=== PATIENT | male | born 1945 | race Caucasian/White ===

== ENCOUNTER 2021-01-25 16:17 | Inpatient (IN) | payer OTHER ==
[~2021-01-25] VITALS: Ht 167.6 cm; Wt 101.4 kg
[~2021-01-25 16:17] MED LIST: ALLO100 PO; ASPI81CH PO; ATOR40TA PO; Advair Hfa 230-12 GM INH; Aspir-Trin325 MG PO; BP MEDS; DULO60 PO; GABA300 PO; LOSA50 PO; METF500C PO
[2021-01-25 17:10] LABS: BASOPHILS ABSOLUTE AUTO 0.05 K/mm3 (0.00-0.23); BASOPHILS PERCENT AUTO 1 % (0-2); EOSINOPHILS ABSOLUTE AUTO 0.03 K/mm3 (0.00-0.68); EOSINOPHILS PERCENT AUTO 0 % (0-6); Hematocrit 36.4 % (37.0-53.0); Hemoglobin 12.5 g/dL (13.5-17.5); IMMATURE GRAN ABSOLUTE AUTO 0.11 K/mm3 (0.00-0.10); IMMATURE GRAN PERCENT AUTO 1 % (0-1); LYMPHOCYTES ABSOLUTE AUTO 0.87 K/mm3 (0.84-5.20); LYMPHOCYTES PERCENT AUTO 8 % (21-46); MONOCYTES ABSOLUTE AUTO 0.36 K/mm3 (0.16-1.47); MONOCYTES PERCENT AUTO 3 % (4-13); Mean Corpuscular HGB 28.8 pg (26.0-34.0); Mean Corpuscular HGB Conc 34.3 g/dL (31.5-36.5); Mean Corpuscular Volume 84 fL (80-100); Mean Platelet Volume 10.6 fL (9.1-12.4); NEUTROPHILS PERCENT AUTO 87 % (41-73); Platelet Count 191 K/mm3 (150-400); RDW Coefficient Variation 13.3 % (11.7-14.2); RDW Standard Deviation 40.9 fL (35.1-46.3); Red Blood Cell Count 4.34 M/mm3 (4.30-5.90); White Blood Cell Count 11.02 K/mm3 (4.00-11.30)
[2021-01-25 17:36] LABS: Albumin, Blood 3.7 g/dL (3.4-5.0); Albumin/Globulin Ratio 0.9 (0.8-1.8); Bilirubin, Total 1.3 mg/dL (0.1-1.0); Bun/Creatinine Ratio 23.4 (12.0-20.0); Calcium, Blood 9.3 mg/dL (8.5-10.1); Creatinine, Blood 1.37 mg/dL (0.60-1.20); Globulin, Blood 4.1 g/dL (2.2-4.0); Potassium, Blood 4.8 mmol/L (3.5-5.5); Total Protein, Blood 7.8 g/dL (6.4-8.2)
[2021-01-25 18:14] LABS: SARS-Cov-2 (COVID-19) PCR, MMC NEGATIVE (NEGATIVE)
[2021-01-25 18:54] LABS: CPK Creatine Kinase 196 U/L (39-308); Creatine Kinase MB 3.2 ng/mL (0.0-3.6); Creatine Kinase MB Index 1.6 (0.0-4.0); Ethanol (Alcohol), Blood, Med <3 mg/dL; Magnesium, Blood 1.6 mg/dL (1.6-2.4); Salicylate <1.7 mg/dL (2.8-20.0); Troponin I <0.015 ng/mL (0.000-0.040)
[2021-01-25 20:09] LABS: Source, Urine Clean Catch
[2021-01-25 20:40] LABS: Bilirubin, Urine Neg (Neg); Blood, Urine Neg (Neg); Glucose Qualitative, Urine 4+ (Neg); Ketones, Urine 2+ (Neg); Leukocyte Esterase, Urine Neg (Neg); Nitrite, Urine Neg (Neg); Protein, Urine 1+ (Neg); Urobilinogen, Urine NORM (Normal); pH, Urine 6.5 (5.0-8.0)
[2021-01-25 20:54] LABS: Appearance, Urine Clear (Clear); Color, Urine Yellow (P-Yellow)
[2021-01-25 20:59] LABS: U Amphetamine Screen Not Detected; U Barbituate Screen Not Detected; U Benzodiazapine Screen Not Detected; U Buprenorphine Screen Not Detected; U Cannabinoids Screen Not Detected; U Cocaine Screen Not Detected; U Methadone Screen Not Detected; U Methamphetamine Screen Not Detected; U Opiates Screen Not Detected; U Oxycodone Screen Not Detected; U Phencyclidine Screen Not Detected; U Propoxyphene Screen Not Detected
[2021-01-25] MEDS ORDERED: Enulose10 GM/15 M PO (21:40)
[2021-01-26] MEDS ORDERED: ALLO100 PO (14:47)
[2021-01-26] MEDS ORDERED: AMLO10 PO (14:47)
[2021-01-26] MEDS ORDERED: Cardura Xl8 MG PO (14:48)
[2021-01-26] MEDS ORDERED: ATOR10 PO (14:48)
[2021-01-26] MEDS ORDERED: CHLO25B PO (14:48)
[2021-01-26] MEDS ORDERED: GABA800 PO (14:49)
[2021-01-26] MEDS ORDERED: IBUP600 PO (14:49)
[2021-01-26] MEDS ORDERED: DULO60 PO (14:49)
[2021-01-26] MEDS ORDERED: GLIP5 PO (14:49)
[2021-01-26] MEDS ORDERED: LACT10SY PO (14:50)
[2021-01-26] MEDS ORDERED: GLUCOPHAGE1000 M1 PO (14:51)
[2021-01-26] MEDS ORDERED: LIDO700A20 TOP (14:51)
[2021-01-26] MEDS ORDERED: LOSARTAN POTAS100 M1 PO (14:51)
--- NOTE | 2021-01-26 23:45 | NUR ---
ADMISSION NOTE: RECEIVED PATIENT IN ER VIA WEELCHAIR AOOX1. DISORIENTD TO TIME AN PLACE. PT DENIES ANY DISCOMFORT. FORGETFUL, POOR HISTORIAN. NO IV ACCESS. RESP UNLABORED. ORIENTED PT TO CALL LIGHT, ROOM, AND SURROUNDINGS. MEDS GIVEN. PT IS COMPLIANT AND COOPERATIVE BUT NEEDS REINFORCEMENT WITH TASKS. WILL CONTINUE TO MONITOR.
--- NOTE | 2021-01-27 03:13 | NUR ---
PT RESTING IN BED WITHOUT DISTRESS. HE DENIES ANY DISCOMFORT. VSS. NEEDS REDIRECTIONS AT TIMES BUT COMPLIANT AND COOPERATIVE. SAFETY AND COMFORT MEASURES MAINTAINED. CONTINUE WITH PLAN OF CARE.
--- NOTE | 2021-01-27 17:29 | NUR ---
SHIFT SUMMARY: NO ACUTE EVENTS. CIWA 5. ALERT TO SELF ONLY. MADE AWARE THAT HIS IS AT [facility]; MADE PHONE CALL WITH HIM SO HE COULD GET UPDATE ON HER CONDITION. CBG > 200 ALL SHIFT. DENIES PAIN, BUT DID C/O R HIP PAIN TO PHYSICAL THERAPIST THIS MORNING DURING HIS EVAL. LUNGS CLEAR, ON RA. USING BR INDEPENDENTLY, GAIT STEADY. NO ATTEMPTS AT ELOPEMENT, HAS BEEN CALM AND COOPERATIVE THUS FAR, BUT WANTS TO GO HOME OR TO SEE HIS CHARLY.
--- NOTE | 2021-01-28 04:47 | NUR ---
PT IS ALERT AND ORIENTED TO SELF. DENIES ANY DISCOMFORT. NO S/S OF WITHDRAWAL. CIWA SCALE CONSISTENTLY 1. PT HAS BEEN CALM AND COOPERATIVE. PLEASANT ON APPROACH. MEDS GIVEN. SAFETY AND COMFORT MEASURES MAINTAINED. CALL LIGHT WITH REACH. NO CHANGE IN BEHAVIOR.
[2021-01-28 05:10] LABS: BASOPHILS ABSOLUTE AUTO 0.07 K/mm3 (0.00-0.23); BASOPHILS PERCENT AUTO 1 % (0-2); EOSINOPHILS ABSOLUTE AUTO 0.14 K/mm3 (0.00-0.68); EOSINOPHILS PERCENT AUTO 1 % (0-6); Hematocrit 38.4 % (37.0-53.0); IMMATURE GRAN ABSOLUTE AUTO 0.12 K/mm3 (0.00-0.10); IMMATURE GRAN PERCENT AUTO 1 % (0-1); LYMPHOCYTES ABSOLUTE AUTO 2.27 K/mm3 (0.84-5.20); LYMPHOCYTES PERCENT AUTO 20 % (21-46); MONOCYTES ABSOLUTE AUTO 0.56 K/mm3 (0.16-1.47); MONOCYTES PERCENT AUTO 5 % (4-13); Mean Corpuscular HGB 28.8 pg (26.0-34.0); Mean Corpuscular HGB Conc 33.9 g/dL (31.5-36.5); Mean Corpuscular Volume 85 fL (80-100); Mean Platelet Volume 9.9 fL (9.1-12.4); NEUTROPHILS ABSOLUTE AUTO 8.45 K/mm3 (1.96-9.15); NEUTROPHILS PERCENT AUTO 73 % (41-73); Platelet Count 188 K/mm3 (150-400); RDW Coefficient Variation 13.2 % (11.7-14.2); RDW Standard Deviation 41.1 fL (35.1-46.3); Red Blood Cell Count 4.51 M/mm3 (4.30-5.90); White Blood Cell Count 11.61 K/mm3 (4.00-11.30)
[2021-01-28 05:33] LABS: Albumin, Blood 3.3 g/dL (3.4-5.0); Albumin/Globulin Ratio 0.8 (0.8-1.8); Bilirubin, Total 1.5 mg/dL (0.1-1.0); Bun/Creatinine Ratio 20.4 (12.0-20.0); Calcium, Blood 9.6 mg/dL (8.5-10.1); Creatinine, Blood 1.47 mg/dL (0.60-1.20); Potassium, Blood 3.6 mmol/L (3.5-5.5); Total Protein, Blood 7.3 g/dL (6.4-8.2)
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
--- NOTE | 2021-01-28 19:00 | NUR ---
ASSUMED CARE RECEIVED REPORT FROM TRELL SWANN. PT RESTING, IN NAD. NO ACUTE NEEDS ASSESSED. CALL LIGHT, POSSESSIONS IN REACH, BED IN LOW AND LOCKED POSITION.
--- NOTE | 2021-01-28 21:55 | NUR ---
THIS RN IN PT ROOM ASSESSING PT. PT STATED, "ARE YOU TOUCHING MY BOOBIES?" THIS NURSE EXPLAINING ASSESSMENT OF LUNG AND HEART SOUNDS TO PT. PT THEN STATED, "CAN I LISTEN TO YOUR LUNGS? AND CAN I GET A BACK RUB?" RE-DIRECTED PT, REMINDING THAT REQUESTS AND BEHAVIOR IS INAPPROPRIATE.
--- NOTE | 2021-01-28 22:15 | NUR ---
NOTIFIED DR. MESA OF PT'S BP OF 101/58 AND HOLDING DOXAZOSIN. NO NEW ORDERS RECEIVED AT THIS TIME.
[2021-01-29 07:46] LABS: Albumin, Blood 3.3 g/dL (3.4-5.0); Anion Gap 9 mmol/L (6-16); Blood Urea Nitrogen 38 mg/dL (8-24); Bun/Creatinine Ratio 23.6 (12.0-20.0); CO2, Blood 25 mmol/L (21-32); Calcium, Blood 9.5 mg/dL (8.5-10.1); Chloride, Blood 101 mmol/L (98-108); Creatinine, Blood 1.61 mg/dL (0.60-1.20); Glomerular Filtration Rate 42 (60-); Glucose, Blood 203 mg/dL (70-99); Phosphorus, Blood 4.6 mg/dL (2.5-4.9); Potassium, Blood 3.7 mmol/L (3.5-5.5); Sodium, Blood 135 mmol/L (136-145)
--- NOTE | 2021-01-29 08:00 | NUR ---
SHIFT SUMMARY PT RESTING, IN NAD. NO ACUTE CONCERNS TO REPORT OVERNIGHT, VS REVIEWED,WNL. NEGATIVE CIWAS. PT APPEARD TO SLEEP WELL T/O. NO ACUTE NEEDS ASSESSED AT THIS TIME. CALL LIGHT, POSSESSIONS IN REACH, BED IN LOW AND LOCKED POSITION. REPORT GIVEN TO TRELL SWANN.
--- NOTE | 2021-01-29 19:28 | NUR ---
SHIFT SUMMARY NO ACUTE CHANGES, PT IS WAITING ON [employer] FOR PLACEMENT. WILL CONTINUE TO MONITOR
--- NOTE | 2021-01-30 19:11 | NUR ---
SHIFT SUMMARY NO ACUTE CHANGES THIS SHIFT, HOPEFUL FOR TRANSFER TO [facility] TOMORROW PM. WILL CONTINUE TO MONITOR.
--- NOTE | 2021-01-31 06:05 | NUR ---
PT had 76th Birthday yesterday. [employer] with 3 years Service. PT's Spouse & he were found down in Home with covid 19. had continued Hospitalized with Covid 19 in [place]. Guardianship letter in chart, safe dc plan pending. Pleasant indep in room.
--- NOTE | 2021-01-31 18:44 | NUR ---
PLEASANTLY CONFUSED.COOPERATIVE. GOOD APPETITE. UNLABORED RESPIRATIONS. AMBULATORY TO BATHROOM STEADY GAIT. NO IV ASSESS NEEDED. NO TELE OR OXYGEN.WCTM
--- NOTE | 2021-02-01 05:08 | NUR ---
END OF SHIFT SUMMARY: Pt A&Ox2. Pleasantly confused. Wanders. Does not know where he is nor why he got admitted. Keeps getting up to "look for in [address]." Vitals WNL. No acute events overnight. Pt able to walk to bathroom with standby assist. Gait unsteady at times. Bed alarm activated. Call light within reach, bed in lowest position.
--- NOTE | 2021-02-01 18:47 | NUR ---
ALL TO SELF. PLEASANTLY CONFUSED. STEADY GAIT IN ROOM. WAITING FOR [facility] D[facility]. IS AT [facility]. [facility]
--- NOTE | 2021-02-02 05:35 | NUR ---
END OF SHIFT SUMMARY: Pt oriented to self. Pleasantly confused. Wanders. Bed alarm on, call light within reach. Unable to use call light but able to voice needs. Vitals WNL. No acute events overnight.
--- NOTE | 2021-02-02 19:52 | NUR ---
SHIFT SUMMARY: NO ACUTE EVENTS. DENIED PAIN. A&O X 1, PLEASANT AND COOPERATIVE. GOOD PO INTAKE. GETTING UP TO BR INDEPENDENTLY. NAPPED INTERMITTENTLY ALL DAY. AWAITING PLACEMENT.
--- NOTE | 2021-02-03 03:45 | NUR ---
BEEF PLUCK TRIMMER SUMMARY PATIENT VS WERE OK. HE LODGED NIL FRESH COMPLAINT. HE WAS ASSISTED WHEN NEEDED. WILL CONTINUE TO MONITOR PATIENT.
--- NOTE | 2021-02-03 17:05 | NUR ---
Shift Summary AO to self. Very forgetful. Does not know hospital or reason for hospitalization. Does not know date/year. Poor short term memory. Independent in room, mild shuffling of gait, otherwise stable. Appetite is good. Denies pain. Wants to go home because he "feels fine". No acute concerns, or complaints. Awaiting placement.
--- NOTE | 2021-02-04 05:52 | NUR ---
STORE TEAM MEMBER SUMMARY PATIENT HAD AN UNEVENTFUL NIGHT. LODGED NO COMPLAIN. WILL CONTINUE TO MONITOR.
--- NOTE | 2021-02-04 16:39 | NUR ---
Shift Summary C/O dizziness today. Remains forgetful, does not call for assistance. Bed alarm on for safety. No new concerns. WCTM.
--- NOTE | 2021-02-05 05:00 | NUR ---
PIPE OR STEAM FITTER FURNACE INSTALLER SUMMARY PATIENT HAD A CALM SHIFT. HE LODGED NIL FRESH COMPLAIN. STILL MONITORING THE PATIENT.
--- NOTE | 2021-02-05 15:37 | NUR ---
Met pt in bed relaxed he is doing much better , encouraged pt.
--- NOTE | 2021-02-05 18:08 | NUR ---
PATIENT IS ALERT AND DISORIENTED. HE IS PLEASANTLY CONFUSED. ON RA. SBA TO THE BATHROOM. HE HAD A SHOWER THIS SHIFT. PATIENT IS SITTING UP IN BED FOR DINNER AT THIS TIME. NO C/O PAIN. WILL CONTINUE TO MONITOR
--- NOTE | 2021-02-06 04:52 | NUR ---
PATIENT IS ASLEEP LYING IN BED. NO EVIDENCE OF PAIN OR S/S DISTRESS, RR EVEN AND UNLABORED. VS WNL. NO ACUTE CHANGS OVERNIGHT. BED IN LOW POSITION, BED ALARM ON AND CALL LIGHT WITHIN REACH.
--- NOTE | 2021-02-07 05:05 | NUR ---
PATIENT IS ASLEEP LYING IN BED, NO ACUTE CHANGES OVERNIGHT. PT HAS BEEN CALM AND COOPERATIVE. PATIENT IS CONFUSED AND REQUIRES REORIENTING. NO OTHER APPARENT NEEDS. BED ALARM ON, BED IN LOW POSITION AND CALL LIGHT WITHIN REACH.
[2021-02-07 05:17] LABS: Bun/Creatinine Ratio 34.9 (12.0-20.0); Calcium, Blood 10.2 mg/dL (8.5-10.1); Creatinine, Blood 2.12 mg/dL (0.60-1.20); Potassium, Blood 4.6 mmol/L (3.5-5.5)
--- NOTE | 2021-02-07 13:38 | NUR ---
PATIENT WAS OOB AND APPEARED CONFUSED AND ASKING 'WHERE IS THE REPUBLICAN?" HE IS ALERT AND ORIENTED TO PERSON AND PLACE. HE DENIES DISCOMFORT AND NEEDED REDIRECTION. AT LUNCH TIME, HE WAS INCONTINENT OF STOOL AND WAS ASSISTED TO THE BATHROOM. HE REPORTED FEELING DIZZY WHILE OOB. HIS SBP LOW 100'S. BG -322. HE STATED HE FELT BETTER AFTER GETTING BACK TO BED. WILL CONTINUE TO MONITOR.
--- NOTE | 2021-02-07 18:47 | NUR ---
PATIENT IS ALERT TO PERSON AND PLACE BUT CONFUSED AT TIMES. HE DENIES ANY PAIN OR DISCOMFORT. HE WAS INCONTINENT FOR BM X 1 TODAY AND REPORTED FEELING DIZZY WHILE OOB. SBP WAS IN LOW 100'S. SBP WAS LOW 90'S X1 WHILE LYING FLAT IN BED. B/P WAS RECHECK WITH HOB ELEVATED 30 DEGREES AND SBP 123. HE DENIED FEELING LIGHTHEADED, DIZZY. OR ANY ABNORMAL SYMPTOMS. HE EXPRESSES CONCERN ABOUT HIS SPOUSE WHO HE STATES IS IN THE HOSPITAL AND NOT EXPECTED TO LIVE. HE DIDNT IDENTIFY ANYONE HE WANT TO CALL. HE WAS AMBULATED IN HALLWAY THIS AFTERNOON AND SITTING IN CHAIR IN HALLWAY WITH STAFF SUPERVISION. HE HAS AN UNEVENTFUL DAY.
[2021-02-08 05:04] LABS: Bun/Creatinine Ratio 35.2 (12.0-20.0); Calcium, Blood 10.3 mg/dL (8.5-10.1); Creatinine, Blood 2.1 mg/dL (0.60-1.20); Potassium, Blood 4.6 mmol/L (3.5-5.5)
--- NOTE | 2021-02-08 05:15 | NUR ---
PATIENT IS ASLEEP LYING IN BED. RR EVEN AND UNLABORED. NO S/S OF DISTRESS. VS WNL. BED ALARM ON, BED IN LOW POSITION AND CALL LIGHT WITHIN REACH.
--- NOTE | 2021-02-08 19:00 | NUR ---
PT IS ALERT TO PERSON. HE IS INCREASINGLY CONFUSED, RESTLESS, WITH HALLUCINATIONS. HE IS NOT EASILY REDIRECTED THE PAST COUPLE OF DAYS. HE HAS BEEN UP ALL DAY. VERBAL RESPONSES INAPPROPRIATE TO QUESTIONS. HE HAS BEEN RESTLESS AND OFTEN MOVING FROM BED TO CHAIR TO BENCH. VS WNL. HE DENIES PAIN OR ANY DISCOMFORT. DISCUSSED WITH PHYSICIAN AND ORDERS RECEIVED TO GIVE ZYPREXA PRN.
[2021-02-09 05:07] LABS: Hematocrit 38.9 % (37.0-53.0); Hemoglobin 13.3 g/dL (13.5-17.5); Mean Corpuscular HGB 29.1 pg (26.0-34.0); Mean Corpuscular HGB Conc 34.2 g/dL (31.5-36.5); Mean Corpuscular Volume 85 fL (80-100); Mean Platelet Volume 10.6 fL (9.1-12.4); Platelet Count 168 K/mm3 (150-400); RDW Coefficient Variation 13.5 % (11.7-14.2); RDW Standard Deviation 41.8 fL (35.1-46.3); Red Blood Cell Count 4.57 M/mm3 (4.30-5.90); White Blood Cell Count 9.99 K/mm3 (4.00-11.30)
--- NOTE | 2021-02-09 05:23 | NUR ---
PATIENT WAS MORE CONFUSED TONIGHT AND EXPERIENCED AUDITORY AND VISUAL HALLUCINATONS. PT REQUIRED FREQUENT REORIENTING WITH SEVERAL ATTEMPTS TO GE OUT OF BED. TEATED WITH PRN MEDICATION TO HELP WITH AGITATION PER MAR. PT IS NOW ASLEEP LYING FLAT IN BED. RR EVEN AND UNLABORED. BED ALARM ON, BED IN LOW POSITION AND CALL LIGHT WITHIN REACH.
[2021-02-09 05:36] LABS: Albumin, Blood 3.5 g/dL (3.4-5.0); Albumin/Globulin Ratio 0.9 (0.8-1.8); Bilirubin, Total 1.5 mg/dL (0.1-1.0); Bun/Creatinine Ratio 39.8 (12.0-20.0); Calcium, Blood 9.8 mg/dL (8.5-10.1); Creatinine, Blood 1.71 mg/dL (0.60-1.20); Potassium, Blood 4.6 mmol/L (3.5-5.5); Total Protein, Blood 7.5 g/dL (6.4-8.2)
--- NOTE | 2021-02-09 08:52 | NUR ---
UNABLE TO AROUSE PT THIS MORNING FOR AM MEDICATIONS AND BREAKFAST. HE WILL OPEN EYES FOR A BRIEF MOMENT AND SHUIT THEM AGAIN. HE IS LIGHTLY SNORING INTERMITTENTLY. RR ARE UNEVEN BUT NOT LABORED. RR ARE 18 PER MINUTE AT THIS TIME. VITAL SIGNS W/IN NORMAL LIMITS, NO S/S OF PAIN. PT WAS REPORTED TO BE MORE CONFUSED AND AGITATED LAST NIGHT AND WAS GIVEN PRN ZYPREXA AND ATIVAN.
[2021-02-09 11:23] LABS: Source, Urine Catheter
[2021-02-09 11:26] LABS: Appearance, Urine Clear (Clear); Bilirubin, Urine Neg (Neg); Blood, Urine Neg (Neg); Color, Urine Yellow (P-Yellow); Glucose Qualitative, Urine 2+ (Neg); Ketones, Urine Neg (Neg); Leukocyte Esterase, Urine Neg (Neg); Nitrite, Urine Neg (Neg); Protein, Urine Neg (Neg); Urobilinogen, Urine NORM (Normal)
--- NOTE | 2021-02-09 11:38 | NUR ---
PT ATTEMPTED TO URINATE THIS MORNING WHEN HE AWOKE BUT WAS UNABLE TO PRODUCE ANY URINE OUTPUT. ATTENDS WERE DRY, ABD WAS DISTENDED AND PT C/O ABD PAIN WITH PALPATION. VO RECEIVED FROM DR. TRAN WHO ARRIVED TO ROOM WHEN PT WAS ATTEMPTING TO URINATE. ORDERS RECEIVED TO BLADDER SCAN AND STRAIGHT CATH IF PT RETAINING. BLADDER SCAN COMPLETED AND RESULT WAS 1101. PT STRAIGHT CATHED WITH 14 FR COUDE USING STERILE TECHNIQUE. OBTAINED 1390 CC OF CLEAR LIGHT YELLOW URINE. SAMPLE SENT TO LAB FOR ANALYSIS. DIFFICULTY WITH STRAIGHT CATH, SLW TO DRAIN AND RESISTANCE MET WITH INSERTION. PT HAD C/O PAIN INITIALLY ON INSERT BUT HAD NO COMPLAINTS ONCE INSERTED. PT SLEPT THROUGH MOST OF THE PROCEDURE AND CONTINUED TO BE DIFFICULT TO AROUSE SO MEDICATIONS HELD DUE TO ASPIRATION RISK. PUPILS NOTED TO BE UNEQUAL BILAT. MEASUREMENT AND VERIFICATION ENGINEER ARE EQUAL BILATERALLY, NO FACIAL DROOP NOTED. L PUPIL 4MM, R PUPIL 2MM.
--- NOTE | 2021-02-09 16:51 | NUR ---
PT HAS BECOME MORE ALERT AND RESPONSIVE AT THIS TIME STAYING AWAKE AND RESPONDING TO QUESTIONS APPROP. PT VOIDED AT HIS REQUEST 620 CC. POST VOID BLADDER SCAN COMPLETED AND RESULT WAS ONE CC. RETENTION RESOLVED AT THIS TIME. PT GIVEN A SANDWICH AND GATORADE AND ENSURE SINCE HE HAS HAD NO ORAL INTAKE SINCE LAST NIGHT. PT TOLERATING WELL AT THIS TIE WITH NO CHOKING EPISODES.
--- NOTE | 2021-02-09 17:53 | NUR ---
PT IS ATTEMPTING TO GET OOB AND IS NOT REDIRECTABLE. HE IS A HIGH FALL RISK. PT IS ALSO REPORTING SEEING FIREBALLS IN THE AIR AND REACHES FOR THEM. HE HAS PULLED OUT TWO IV'S AND REPORTED THE SECOND IV WAS A SCAB ABD THAT IS WHY HE TOOK IT OFF. ATTEMPTED TWICE TO START AN IV AND WAS UNSUCCESSFUL. CALL PLACED TO DR. TRAN TO REPORT CONCERNS PT HAS IV ATIVAN FOR ETOH WITHDRAWAL. UNABLE TO GIVE DUE TO NO IV ACCESS. LEFT MESSAGE AND AWAITING RETURN CALL.
--- NOTE | 2021-02-09 19:18 | NUR ---
SHIFT SUMMARY: PT A/O TO SELF, SLEPT MOST OF THE DAY UNTIL ABOUT 1530. PT AWOKE AND WAS ATTEMPTING TO GET OOB, WAS UNABLE TO REDIRECT AND TOO UNSTABLE TO BE ALLOWED TO GET OOB. PT ALSO PULLED OUT TWO IV'S TODAY AND SO ORDER WAS OBTAINED OKAY TO LEAVE OUT IV AND ORDER FOR ONE TIME DOSE OF ZYPREXA 10 MG GIVEN IM FROM DR. TRAN. PT TOLERATED WELL. PT DENIED PAIN WITH ASSESSMENT. PAINAD WAS 0/10. PT HAD URINARY RETENTION THIS AM BUT RESOLVED THIS AFTERNOON. NO OTHER ACUTE CONCERNS THIS SHIFT.
--- NOTE | 2021-02-10 00:52 | NUR ---
VERIFIED CAMERA CALLED SCU MONITOR AND VERIFIED VIDEO MONITORING IS IN PLACE
--- NOTE | 2021-02-10 04:25 | NUR ---
SHIFT SUMMARY ADMITTED FOR DEMENTIA. FOUND DOWN AT HOME. FULL CODE. PLAN IS FOR PLACEMENT, GUARDIANSHIP PAPERS IN CHART. CONFUSED. CAN BE IMPULSIVE AND WANDER PER REPORTS, THIS SHIFT HE SEEMED TOO WEAK TO STAND. HE STILL SEEMS SEVERELY WEAK AND DISORIENTED TO ME, UNSURE IF THIS IS RESIDUAL EFFECT FROM MEDICATION. PER REPORT HE WAS NOT THIS WEAK ON PREVIOUS SHIFTS. HE IS NOT REDIRECTABLE. BLADDER SCAN REVEALED 468 CC'S, STRAIGHT CATH PERFORMED PER ORDERS. HIS SPEECH IS GARBLED. CAMERA IS MONITORING.
[2021-02-10 06:17] LABS: Bun/Creatinine Ratio 36.4 (12.0-20.0); Calcium, Blood 10.7 mg/dL (8.5-10.1); Creatinine, Blood 1.65 mg/dL (0.60-1.20); Potassium, Blood 4.9 mmol/L (3.5-5.5)
--- NOTE | 2021-02-10 12:20 | NUR ---
garbaled speech, spent the first part of the shift sleeping, difficult to wake for lunch, will continue to monitor and treat, trying crushed in , chewed nerontin and said it tasted awful, no urine thus far this shift
--- NOTE | 2021-02-10 14:44 | NUR ---
did not feel he needed a cath, was assisted to the bathroom, unable to urinate, agreed to cath, tolerated the procedure well, 600ml out clear yellow urine, sitting up eating lunch, hard to understand, more and less orintated as time passes
[2021-02-10 15:12] LABS: PO2 Arterial 97.8 mmHg (80-100); pH Blood Arterial 7.48 (7.35-7.45)
[2021-02-10 15:43] LABS: Thyroid Stimulating Hormone 3.56 uIU/mL (0.360-4.800)
--- NOTE | 2021-02-10 17:16 | NUR ---
remains confused but cooperative, walked with two person sba to bathroom but has remained in chair with an alarm since lunch, call light in reach, will continue to monitor and treat until share report with noc nurse
--- NOTE | 2021-02-10 19:20 | NUR ---
ASSUMED CARE RECEIVED REPORT FROM TRELL DURHAM. PT RESTING, IN NAD. NO ACUTE NEEDS ASSESSED AT THIS TIME. CALL LIGHT, POSSESSIONS IN REACH, BED IN LOW AND LOCKED POSITION WITH ALARMS ON.
--- NOTE | 2021-02-10 19:47 | NUR ---
NOTIFIED DR. MESA OF PT'S CONTINUED ATTEMPTS TO GET OOB UNASSISTED AND PT'S RISK FOR FALLS. ORDERS RECEIVED.
--- NOTE | 2021-02-11 04:14 | NUR ---
SHIFT SUMMARY PT ASLEEP, IN NAD. APPEARED TO SLEEP ON AND OFF T/O NIGHT. VS REVIEWED,WNL. REMAINS CONFUSED, MAKES SUGGESTIVE COMMENTS TOWARDS STAFF ON OCCASION; BUT RE-DIRECTABLE. CHIEF LEARNING OFFICER REPORTED INTERMITTENT DRY HEAVES AFTER EATING, RELIEVED BY SACHIN MIST; NO FURTHER EPISODES NOTED AT THIS TIME. MESERET VEST REMAINS IN PLACE. NO ACUTE NEEDS ASSESSED AT THIS TIME. CALL LIGHT, POSSESSIONS IN REACH, BED IN LOW AND LOCKED POSITION WITH ALARMS ON. WILL CONTINUE TO PROVIDE CARE NEEDED UNTIL REPORT GIVEN TO ONCOMING RN.
[2021-02-11 05:01] LABS: Hematocrit 38.5 % (37.0-53.0); Hemoglobin 13.2 g/dL (13.5-17.5); Mean Corpuscular HGB 28.7 pg (26.0-34.0); Mean Corpuscular HGB Conc 34.3 g/dL (31.5-36.5); Mean Corpuscular Volume 84 fL (80-100); Mean Platelet Volume 10.3 fL (9.1-12.4); Platelet Count 198 K/mm3 (150-400); RDW Coefficient Variation 13.5 % (11.7-14.2); RDW Standard Deviation 41.5 fL (35.1-46.3); White Blood Cell Count 15.07 K/mm3 (4.00-11.30)
[2021-02-11 05:52] LABS: Albumin, Blood 3.5 g/dL (3.4-5.0); Albumin/Globulin Ratio 0.8 (0.8-1.8); Bilirubin, Total 1.7 mg/dL (0.1-1.0); Bun/Creatinine Ratio 30.2 (12.0-20.0); Creatinine, Blood 2.55 mg/dL (0.60-1.20); Globulin, Blood 4.2 g/dL (2.2-4.0); Potassium, Blood 4.3 mmol/L (3.5-5.5); Total Protein, Blood 7.7 g/dL (6.4-8.2)
[2021-02-11 13:31] LABS: Source, Urine Clean Catch
[2021-02-11 13:36] LABS: Appearance, Urine Clear (Clear); Bilirubin, Urine Neg (Neg); Blood, Urine 5+ (Neg); Color, Urine Yellow (P-Yellow); Glucose Qualitative, Urine 2+ (Neg); Ketones, Urine Neg (Neg); Leukocyte Esterase, Urine 1+ (Neg); Nitrite, Urine Neg (Neg); Protein, Urine 1+ (Neg); Urobilinogen, Urine NORM (Normal)
[2021-02-11 13:44] LABS: Bacteria Mod /hpf
[2021-02-11 13:45] LABS: Squamous Epithelial Cells Few /hpf (Few)
--- NOTE | 2021-02-11 18:26 | NUR ---
Remains in restraints, somulent and confused, compliant while listening to directions but forgets quickly, NS infusing with no s/sx of infection or infiltration, call light in reach and frequent monitoring, rm air, will continue to monitor and treat until share report with noc nurse
--- NOTE | 2021-02-11 19:25 | NUR ---
ASSUMED CARE RECEIVED REPORT FROM TRELL DURHAM. PT DROWSY, BUT AROUSABLE TO VERBAL STIMULI. NO S/S RESP DISTRESS NOTED, NO ACUTE NEEDS ASSESSED AT THIS TIME. MESERET VEST IN PLACE. IVF INFUSING ORDERED. CALL LIGHT, POSSESSIONS IN REACH, BED IN LOW AND LOCKED POSITION WITH ALARMS ON.
--- NOTE | 2021-02-11 22:36 | NUR ---
SPOKE TO DR. SKELTON REGARDING PT'S REMOVAL OF IV AND ATTEMPS TO REMOVE MESERET VEST. ORDERS RECEIVED.
--- NOTE | 2021-02-12 04:50 | NUR ---
SHIFT SUMMARY PT RESTING, IN NAD. HAS BEEN AWAKE T/O MUCH OF THE NIGHT. A&O TO SELF ONLY; TALKS TO PEOPLE NOT IN THE ROOM AND REFERS TO OBJECTS THAT ARE NOT [id number] TO LOCATION/SITUATION. MAKES SUGGESTIVE COMMENTS AND ATTEMPTS TO GRAB FEMALE STAFF INAPPROPRIATELY, REMINDED PT THAT BEHAVIOR IS INAPPROPRIATE. APPEARS TO RESPOND BETTER TO MALE STAFF. BLADDER SCANNED AND STRAIGHT CATHED PER ORDERS. VS REVIEWED,WNL. RESTRAINTS IN PLACE ORDERED. NO ACUTE NEEDS ASSESSED AT THIS TIME. CALL LIGHT, POSSESSIONS IN REACH, BED IN LOW AND LOCKED POSITION WITH ALARMS ON. IVF INFUSING ORDERED. WILL CONTINUE TO PROVIDE CARE NEEDED UNTIL REPORT GIVEN TO ONCOMING RN.
[2021-02-12 05:03] LABS: Hematocrit 32.6 % (37.0-53.0); Hemoglobin 11.2 g/dL (13.5-17.5); Mean Corpuscular HGB 28.6 pg (26.0-34.0); Mean Corpuscular HGB Conc 34.4 g/dL (31.5-36.5); Mean Corpuscular Volume 83 fL (80-100); Platelet Count 182 K/mm3 (150-400); RDW Coefficient Variation 13.4 % (11.7-14.2); RDW Standard Deviation 41.1 fL (35.1-46.3); Red Blood Cell Count 3.91 M/mm3 (4.30-5.90); White Blood Cell Count 12.82 K/mm3 (4.00-11.30)
[2021-02-12 05:37] LABS: Albumin/Globulin Ratio 0.8 (0.8-1.8); Bilirubin, Total 1.2 mg/dL (0.1-1.0); Bun/Creatinine Ratio 37.6 (12.0-20.0); Calcium, Blood 8.8 mg/dL (8.5-10.1); Creatinine, Blood 1.89 mg/dL (0.60-1.20); Globulin, Blood 3.6 g/dL (2.2-4.0); Potassium, Blood 4.1 mmol/L (3.5-5.5); Total Protein, Blood 6.6 g/dL (6.4-8.2)
--- NOTE | 2021-02-12 07:00 | NUR ---
PT SAID THAT HE WAS FINE WITH ME BEING HIS STUDENT NURSE. NURSE BILL WITNESSED HIS WILLINGNESS TO WORK WITH ME HIS STUDENT NURSE.
--- NOTE | 2021-02-12 14:32 | NUR ---
Pt. is in bed resting (Dementia) offered prayer for pt.
[2021-02-12 16:40] LABS: U Amphetamine Screen Not Detected; U Barbituate Screen Not Detected; U Benzodiazapine Screen Not Detected; U Buprenorphine Screen Not Detected; U Cannabinoids Screen Not Detected; U Cocaine Screen Not Detected; U Methadone Screen Not Detected; U Methamphetamine Screen Not Detected; U Opiates Screen Not Detected; U Oxycodone Screen Not Detected; U Phencyclidine Screen Not Detected; U Propoxyphene Screen Not Detected
--- NOTE | 2021-02-12 17:15 | NUR ---
SHIFT SUMMARY PT TOOK MEDICATIONS WITH WATER WITHOUT COMPLICATION. HE REMOVED HIS IV IN THE AM, A NEW IV WAS PLACED IN R FOREARM. LATER IN THE DAY HE WAS TAKEN OFF OF WRIST RESTRAINTS AND WAS NOT PULLING AT IV, ORDER HAS BEEN CHANGED TO VEST ONLY. WAS ABLE TO AMBULATE MINIMAL ASSIST WITH FFW INTO THE BATHROOM AND VOID SUCCESSFULLY. WAS BLADDER SCANNED FOR ABOUT 650ML IN THE AFTERNOON, WHEN TAKEN TO THE TOILET WAS ABLE TO VOID 725ML. NO STRAIGHT CATH NEEDED THIS SHIFT.
--- NOTE | 2021-02-12 19:10 | NUR ---
ASSUMED CARE. AOX1, CONFUSED, ONLY AWARE OF SELF. TALKS ABOUT LEAVING AND GOING TO HIS HOME. IS NOT RE-DIRECTABLE AT THIS TIME. IS PLEASANT. POSI VEST FOR IMPULSIVINESS, CONFUSION AND UNSTEADY GAIT. NO PAIN. IV WRAPPED AND INFUSING. WILL MONITOR HE TENDS TO PULL IV'S OUT. ABDOMIN DISTENDED AND ROUND, DENIES ANY NAUSEA OR ABDOMINAL ISSUES. BED ALARM IS ON. CALL LIGHT IS IN REACH. VERY TALKATIVE AND LIKES COMPANY.
--- NOTE | 2021-02-12 20:20 | NUR ---
WESLY PULLED OUT HIS IV, HAD TO PLACE IN SOFT WRIST RESTRAINTS WITH POSY. NEW IV STARTED ON THE LEFT FA. IVF RESTARTED. OFFERED WATER. AND BATHROOM. BED ALARM ON.
--- NOTE | 2021-02-12 22:30 | NUR ---
INCREASE IN AGGITATION. BLADDER SCAN PERFORMED CLOSE TO 1000ML PER SCAN. OFFERED THE URINAL. ATTEMPTED TO GET HIM UP, ONCE OUT OF RESTRAINTS HE ATTEMPTED TO KICK AND HIT STAFF. PLACED BACK IN THE RESTRAINTS. CALLED MD AND GOT ORDER FOR ATIVAN. WILL ADMINISTER AND STRAIGHT CATH.
--- NOTE | 2021-02-12 23:09 | NUR ---
IV ATIVAN GIVEN. WESLY STARTED TO CALM DOWN. STRAIGHT CATH PERFROMED. 1200CC OF YELLOW URINE OBTAINED. TOLERATED WELL. DID TRY TO KICK WHEN FIRST INSERTING THE CATH BUT THEN HE CALMED DOWN LONG YOU TALKED TO HIM ABOUT HIS VEHICLES. RESTRAINTS STILL IN PLACE. BED ALARM ON.
[2021-02-13 05:13] LABS: Hematocrit 31.4 % (37.0-53.0); Hemoglobin 10.8 g/dL (13.5-17.5); Mean Corpuscular HGB Conc 34.4 g/dL (31.5-36.5); Mean Corpuscular Volume 84 fL (80-100); Platelet Count 180 K/mm3 (150-400); RDW Coefficient Variation 13.2 % (11.7-14.2); RDW Standard Deviation 41.1 fL (35.1-46.3); Red Blood Cell Count 3.72 M/mm3 (4.30-5.90); White Blood Cell Count 9.22 K/mm3 (4.00-11.30)
[2021-02-13 05:37] LABS: Albumin/Globulin Ratio 0.8 (0.8-1.8); Bilirubin, Total 1.2 mg/dL (0.1-1.0); Bun/Creatinine Ratio 30.4 (12.0-20.0); Calcium, Blood 9.1 mg/dL (8.5-10.1); Creatinine, Blood 1.48 mg/dL (0.60-1.20); Globulin, Blood 3.8 g/dL (2.2-4.0); Total Protein, Blood 6.8 g/dL (6.4-8.2)
--- NOTE | 2021-02-13 05:44 | NUR ---
SHIFT SUMMARY; AOX2, GOOD SENSE OF HUMOR. BARELY SLEPT THIS SHIFT. VS WNL. STABLE. PLEASANT WITH STAFF. NO CARDIAC EVENTS THIS SHIFT. WAS UP WALKING THE HALLS OFF AND ON. WANTING TO GO HOME BUT IS AWAITING APD PLACEMENT. CALL LIGHT REMAINS IN REACH.
--- NOTE | 2021-02-13 05:59 | NUR ---
SHIFT SUMMARY: INCREASE IN AGGITATION EARLY ON IN THE SHIFT, PULLING OUT HIS IV, AND HAD TO BE PLACED IN SOFT WRIST RESTRAINTS. THIS FURTHER AGGITATED HIM, INCREASING INAPPROPRIATE BEHAVIOR OF YELLING, SCREAMING, THREATENING, CURSING. ATTEMPT WAS MADE TO ALLOW HIM TO GET UP TO COMMODE FOR VOID DUE TO BLADDER SCAN OVER 950 BUT SOON RESTRAINTS WERE MOVED HE BECAME COMBATIVE ATTEMPTED TO KICK AND HIT STAFF. RESTRAINTS WERE RE-APPLIED. ORDER FOR ATIVAN 1MG WAS GIVEN. STRAIGHT CATH PERFORMED 1200CC OF URINE OBTAINED. SLEPT REST OF SHIFT. NEW IV WAS PLACED IN LEFT FA WITH IVF INFUSING CONTINUOUSLY. BLADDER SCAN THIS AM WAS 916, STRAIGHT CATH WITH NO PROBLEMS 1100CC OBTAINED. PATIENT REMAINS IN SOFT WRIST RESTRAINTS, POSY VEST. BED ALARM, CAMERA ON. WILL CONTINUE TO MONITOR.
--- NOTE | 2021-02-13 14:18 | NUR ---
Pt. is lyinsg in bed notb much change prayed for him
--- NOTE | 2021-02-13 16:59 | NUR ---
PATIENT SLEEPT MOST OF THIS SHIFT. UP IN A CHAIR FOR LUNCH FOR A FEW HOURS. PATIENT VOIDS WELL WHEN HE SITS ON COMMODE. NO STRAIGHT CATH NEEDED THIS SHIFT. ONE LARGE LOOSE BM TODAY AFTER LACTULOSE GIVEN. DENIES ANY PAIN OR DISCOMFORT. A/O TO SELF ONLY, CALM AND PLEASANT TODAY BUT UNABLE AT TIMES TO FOLLOW COMMANDS. VSS, ON RA. REMAINS IN MESERET AND BILATERAL SOFT WRIST RESTRAINTS DUE TO HIGH FALL RISK AND TO PROTECT LINES. SKIN INTACT. AWAITING GUARDIANSHIP AND PLACEMENT.
--- NOTE | 2021-02-13 19:20 | NUR ---
ASSUMED CARE. WESLY IS TIRED, DOOZING OFF IN THE RECLEINER. IN A GOOD MOOD JOKING AND GETTING ALONG WITH STAFF. FOLLOWS DIRECTION AND LIKES TO TALK ABOUT HIS LIFE. DENIES ANY PAIN OR DISCOMFORT. RESTRAINTS POSI IN PLACE. WILL ADMINISTER MEDS AND GET HIM TO BED, MONITOR FOR CHANGES. CALL LIGHT IN REACH,. CHAIR ALARM ON.
--- NOTE | 2021-02-13 20:45 | NUR ---
WESLY WAS PULLING AGAINST THE RESTRAINTS ASKING WHY HE WAS TIED DOWN AND WANTING TO BE UN-TIED. MOLDED GOODS SPOT PICKER AND I GOT HIM UP TO BSC, BM AND VOID NOTED. 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 PT ON A CAR SHOW ON TV FOR HIM TO WATCH. POSI IN PLACE. ORDER RENEWED. WILL CONTINUE TO MONITOR, BED ALARM ON.
--- NOTE | 2021-02-13 23:46 | NUR ---
WESLY STARTED TO SCREAM AROUND 2300. ARRIVED TO ROOM, HE HAD AN INCREASE IN AGGITATION, PULLING ON HIS RESTRAINTS, CURSING, THREATING. TALKING AGAIN ABOUT SOMEONE THROWING FOOD ON HIS WINDOW, CAR PARTS BEING TAKEN. HE STARTED TO PULL THE HEAD OF THE BED OFF TO THROW AT STAFF. GOT HIM CALM FOR A SECOND AND HE ASKED FOR US TO GET HIM SOME "BOOZE". ZYPREXA ORDERED, IT HAS BEEN PASSED IN REPORT THAT THE PATIENT HAS HAD THE OPPOSITE REACTION TO THIS MEDICATION. CALLED MD AND GOT ORDERED FOR HALDOL. CHECKED NOTES AND THERE IS NOTHING NOTED ABOUT REACTION BUT ZYPREXA HAS BEEN GIVEN SEVERAL TIMES. DECIDED TO GIVE ZYPREXA IM AND WILL REASSESS.
--- NOTE | 2021-02-14 00:02 | NUR ---
ZYPREXA HAS HELPED TO CALM HIS SEVERE AGGRESIVINESS TO WHERE IT IS SAFE TO APPROACH HIM. HE IS NO LONGER TRYING TO HURT STAFF. BUT HE STILL IS YELLING AND VERY FRUSTRATED THAT HE IS TIED DOWN. DOES NOT UNDERSTAND THE REASONING FOR IT. GAVE HIM SOME DIET SODA WHICH HE THOUGHT WAS AN ALCOHOLIC DRINK WHICH CALMED HIM DOWN FURTHER.
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
[2021-02-14 04:44] LABS: Hemoglobin 10.3 g/dL (13.5-17.5); Mean Corpuscular HGB Conc 34.3 g/dL (31.5-36.5); Mean Corpuscular Volume 85 fL (80-100); Mean Platelet Volume 10.1 fL (9.1-12.4); Platelet Count 186 K/mm3 (150-400); RDW Coefficient Variation 13.2 % (11.7-14.2); RDW Standard Deviation 41.2 fL (35.1-46.3); Red Blood Cell Count 3.55 M/mm3 (4.30-5.90); White Blood Cell Count 10.04 K/mm3 (4.00-11.30)
[2021-02-14 05:16] LABS: Albumin, Blood 2.8 g/dL (3.4-5.0); Albumin/Globulin Ratio 0.8 (0.8-1.8); Bilirubin, Total 1.1 mg/dL (0.1-1.0); Bun/Creatinine Ratio 22.7 (12.0-20.0); Calcium, Blood 8.9 mg/dL (8.5-10.1); Creatinine, Blood 1.32 mg/dL (0.60-1.20); Globulin, Blood 3.7 g/dL (2.2-4.0); Potassium, Blood 3.9 mmol/L (3.5-5.5); Total Protein, Blood 6.5 g/dL (6.4-8.2)
--- NOTE | 2021-02-14 05:43 | NUR ---
SHIFT SUMMARY. WESLY HAS AN INCREASE AGGITATION THAT IS CONSISTENT WITH PREVIOUS NIGHT STARTING AROUND 2200. HE BECOMES VERY CONFUSED, COMBATIVE IF YOUR CLOSE TO HIM, ANGRY, THREATING, AND PARINOID. PRN ZYPREXIA GIVEN WHICH RELEIVED HIS ANGER BUT DID NOT ALLOW HIM TO REST. WITH IN SEVERAL HOURS THE ANGER RETURNED AND SO DID THE THREATS. GAVE HIM 3MG OF HALDOL, WHICH HE EVENTUALLY FELL ASLEEP AROUND 4 AM. OTHER BEHAVIORS PRESENTED IN THE PERIODS IS IN APPROPRIATE BEHAVIOR SEXUALLY WITH STAFF AND DESTRUCTIVE BEHAVIOR TRYING TO TEAR THE HEAD OF THE BED OFF TO THROW IT. HE HAS REMAINED IN THE POSI VEST T/O THE NIGHT. VS HAVE BEEN STABLE. BED ALARM HAS REMAINED ON, AND CALL LIGHT IN REACH.
--- NOTE | 2021-02-14 10:00 | NUR ---
PATIENT SLEEPING IN RECLINER, MESERET VEST RESTRAINTS D/C'D. CHAIR ALARM SET FOR SAFETY.
--- NOTE | 2021-02-14 15:47 | NUR ---
PATIENT CALM AND COOPERATIVE WITH CARE THIS SHIFT. SLEPT BETWEEN MEALS, BUT UP TO CHAIR FOR AN HOUR EACH MEAL. RESTRAINTS D/C'D, CHAIR ALARM AND BED ALARM USED FOR SAFETY. PATIENT UP WITH SBA, STEADY ON HIS FEET. VOIDING WELL IN RESTROOM, UNABLE TO UNDERSTAND USE OF URINAL. IV TO L FA WNL AND SL. DENIES ANY PAIN. SKIN INTACT. NO ACUTE CHANGES THIS SHIFT.
--- NOTE | 2021-02-15 06:38 | NUR ---
PT WAS COOPERATIVE AND MED COMPLIANT OVER NIGHT. PT DID NOT SPLEEP AT ALL, WAS RESTLESS WITH MILD AGITATION AND WAS TREATED PER EMAR. PT BENEFITS FROM CALM CONVERSATION WHEN TIME PERMITS. NO CHANGES TO REPORT. STAFF WILL CONTINUE TO MONITOR.
--- NOTE | 2021-02-15 17:14 | NUR ---
SHIFT SUMMARY NO ACUTE CHANGES, A&Ox2-3, DENIES ANY DISTRESS. PULLED IV THIS SHIFT, NO IV ACCESS AT THIS TIME. AMBULATES WELL c SBA, DOES NOT CALL FOR ASSISTANCE, SAFETY PRECAUTIONS IN PLACE. GOOD ORAL INTAKE. AWAITING PLACEMENT. PT IS CURRENTLY SITTING IN CHAIR WITH CALL LIGHT WITHIN REACH AND CHAIR ALARM ON.
[2021-02-16 04:55] LABS: Hematocrit 33.3 % (37.0-53.0); Hemoglobin 11.4 g/dL (13.5-17.5); Mean Corpuscular HGB 29.1 pg (26.0-34.0); Mean Corpuscular HGB Conc 34.2 g/dL (31.5-36.5); Mean Corpuscular Volume 85 fL (80-100); Mean Platelet Volume 9.8 fL (9.1-12.4); Platelet Count 199 K/mm3 (150-400); RDW Coefficient Variation 13.4 % (11.7-14.2); RDW Standard Deviation 40.9 fL (35.1-46.3); Red Blood Cell Count 3.92 M/mm3 (4.30-5.90); White Blood Cell Count 11.16 K/mm3 (4.00-11.30)
[2021-02-16 05:01] LABS: Bun/Creatinine Ratio 17.6 (12.0-20.0); Calcium, Blood 9.3 mg/dL (8.5-10.1); Creatinine, Blood 1.42 mg/dL (0.60-1.20); Potassium, Blood 3.8 mmol/L (3.5-5.5)
--- NOTE | 2021-02-16 17:46 | NUR ---
SHIFT SUMMARY NO ACUTE CHANGES, PT COOPERATIVE AND CALM c CARE FOR MOST PART. DID BECOME IRRITATED c RESTRAINTS AND INSISTING ON GETTING UP AND GOING HOME MULTIPLE TIMES T/O SHIFT. ATIVAN GIVEN FOR ANXIETY AND AGITATION, APPEARED TO BE EFFECTIVE. PT ABLE TO RELAX AND WATCH TV. GOOD ORAL INTAKE T/O SHIFT. PULLED IV OUT, NO IV ACCESS GIVEN BY HOSPITALIST. PT IS CURRENTLY SITTING UP EATING DINNER, CALL LIGHT WITHIN REACH AND BED ALARM ON. MESERET IN PLACE.
--- NOTE | 2021-02-17 18:31 | NUR ---
SHIFT SUMMARY PATIENT SLEEPING MOST OF MORNING DUE TO ATIVAN GIVEN ON NOC SHIFT. PATIENT ABLE TO TRANSFER FROM BED TO CHAIR, AND INTO BATHROOM SBA. PATIENT UP IN RECLINER FOR MEALS. PATIENT IN MESERET FOR FALL RISK. PATIENT PLEASANTLY CONFUSED THIS AFTERNOON AFTER WAKING. DENIES PAIN, NAUSEA, AND SHORTNESS OF BREATH. EATING AND DRINKING WELL.
--- NOTE | 2021-02-18 00:30 | NUR ---
MEDICATED FOR ANXIETY WITH 2MG ATIVAN PER EMAR. CONTINUES TO BE VERBAL WITH YELLING AND CURSING. NURSING REITERATES NEED TO MAINTAIN SAFETY. OFFERED FOOD, FLUIDS, REPOSITIONING, AND PAIN MEDS. REFUSED PAIN MEDS, GIVEN ANXIETY MEDS, ICE CREAM, APPLE SAUCE, AND WATER. DENIES NEED TO POTTY. WILL CONTINUE TO MONITOR AND ADDRESS NEEDS THEY ARISE.
[2021-02-18 04:54] LABS: BASOPHILS ABSOLUTE AUTO 0.06 K/mm3 (0.00-0.23); BASOPHILS PERCENT AUTO 1 % (0-2); EOSINOPHILS ABSOLUTE AUTO 0.14 K/mm3 (0.00-0.68); EOSINOPHILS PERCENT AUTO 1 % (0-6); Hemoglobin 11.4 g/dL (13.5-17.5); IMMATURE GRAN ABSOLUTE AUTO 0.12 K/mm3 (0.00-0.10); IMMATURE GRAN PERCENT AUTO 1 % (0-1); LYMPHOCYTES ABSOLUTE AUTO 1.77 K/mm3 (0.84-5.20); LYMPHOCYTES PERCENT AUTO 14 % (21-46); MONOCYTES ABSOLUTE AUTO 0.53 K/mm3 (0.16-1.47); MONOCYTES PERCENT AUTO 4 % (4-13); Mean Corpuscular HGB 29.2 pg (26.0-34.0); Mean Corpuscular HGB Conc 34.5 g/dL (31.5-36.5); Mean Corpuscular Volume 84 fL (80-100); Mean Platelet Volume 9.6 fL (9.1-12.4); NEUTROPHILS PERCENT AUTO 79 % (41-73); Platelet Count 213 K/mm3 (150-400); RDW Coefficient Variation 13.7 % (11.7-14.2); RDW Standard Deviation 41.7 fL (35.1-46.3); Red Blood Cell Count 3.91 M/mm3 (4.30-5.90); White Blood Cell Count 12.52 K/mm3 (4.00-11.30)
[2021-02-18 05:14] LABS: Bun/Creatinine Ratio 19.3 (12.0-20.0); Calcium, Blood 9.4 mg/dL (8.5-10.1); Creatinine, Blood 1.35 mg/dL (0.60-1.20); Potassium, Blood 3.9 mmol/L (3.5-5.5)
--- NOTE | 2021-02-18 05:45 | NUR ---
LYING IN SEMI FOWLERS WITH EYES CLOSED, HAS SLEPT ON AND OFF ON THIS SHIFT. AAO X3, WARD, FOLLOWS ALL COMMANDS, WITH CONFUSION NOTED. HAS DENIED PAIN AND DISCOMFORT AT THIS TIME. VVS STABLE, RESPIRATIONS EVEN AND UNLABORED ON RA. INCONTINENT OF BOWEL AND BLADDER, WEARS ATTENDS. HAS BEEN SEXUALLY INAPROPRIATE WITH NURSING STAFF. REMAINS IN MESERET VEST D/T INSTABILITY WITH MOVEMENT AND AMBULATION. DENIES FURTHER NEEDS AT THIS TIME. SAFETY MEASURES IN PLACE. WILL CONTINUE TO MONITOR AND ADDRESS NEEDS THEY ARISE. WILL GIVE HAND OFF TO ONCOMING SHUFT USING SBAR DURING BEDSIDE REPORT.
--- NOTE | 2021-02-18 23:22 | NUR ---
2315 PT AGITATED AND KICKING LEGS OVER SIDE OF BED AND YELLING OUT. PT MEDICATED PER EMAR.
--- NOTE | 2021-02-19 03:42 | NUR ---
SUMMARY PT REQUIRED MEDICATION FOR AGITATION. PT RESPONDED WELL TO TX. PT HAS BEEN SLEEPING AND BREATHING EASY. CALL LIGHT IN REACH AND BED ALARM ON.
--- NOTE | 2021-02-19 15:04 | NUR ---
Pt. is lying in bed resting and her nurse in the room attending to his needs , encouraged pt. and prayed for him.
--- NOTE | 2021-02-19 18:26 | NUR ---
SUMMARY- PT SLEEPY IN THE AM AND HARD TO ROUSE. AWOKEN LONG ENOUGH FOR MEDS AND BREAKFAST. SPEECH CHOPPY AND HALTING, NONSENSICAL. FELL BACK TO SLEEP THROUGH LUNCH AND AWOKE AROUND 1500, GOT OOB, SET BED ALARM AND STAFF ASSISTED TO BATHROOM. AMBULATES SBA GOOD STRENGTH, OCC MISSTEP. HAD BM. BACK TO CHAIR AND AWAKE THE REST OF THE SHIFT. SPEECH IS MORE CLEAR, PT FULLY AWAKE WITH ESCALATING ANXIETY. REQUESTING BOTTLE OF WINE AROUND 1700. RN MEDICATED WITH ZYPREXA PO X1 WITH GOOD EFFECT AFTER ABOUT 45 MIN. PT TOLERATED DINNER. DELUSIONAL THAT HE WILL HAVE TO PAY THE BILL AND WAS LOOKING OUT WINDOW FOR GUESTS TO ARRIVE. SET OFF CHAIR ALARM MULT TIMES AND STAFF CLOSE TO ASSIST PT IN ROOM. WILL VISHAL CLOSELY FOR SAFETY. MESERET OFF ALL DAY SINCE 0800 AM.
--- NOTE | 2021-02-20 05:17 | NUR ---
SUMMARY OF THE SHIFT NO ACUTE DISTRESS DURING SHIFT. TRY TO GET OUT BED IN THE BEGINNING OF THE SHIFT. AFTER COUPLES HOURS RESTING ON BED FOR THE REST OF THE BED. CALL LIGHT LISAIN REST.
--- NOTE | 2021-02-20 14:18 | NUR ---
Pt. in bed resting and talking to himself prayed foer him.
--- NOTE | 2021-02-20 16:54 | NUR ---
SHIFT SUMMARY 75 Y MALE ADMITTED WITH AMS/DEMENTIA & ETOH INTOXICATION. PT HAS BEEN VERY SEDATED TODAY AND DIFFICULT TO AROUSE AFTER RECIEVING ZYPREXIA X 2 DURING SILICA FILTER OPERATOR. PT DID NOT WAKE FOR MORNING MEDS OF BREAKFAST. PT WAS ABLE TO RESPOND VERBALLY TO SIMULI BUT DID NOT OPEN HIS EYES. PT FINALLY ALERT AT LUNCH TIME AND MORNING MEDS GIVEN LATE. PT WAS CONFUSED AND DROWSY BUT ABLE TO SIT UP IN CHAIR WITH CHAIR ALARM IN PLACE AND EAT LUNCH IND. PT RETURNED TO BED AND SLEPT REMAINDER OF DAY. RN FROM [place] [facility] HERE TO EVAL PT BUT UNABLE DUE TO SEDATION. RN REPORTS SHE WILL RETURN TOMORROW TO ATTEMPT TO ASSESS HIM FOR PLACEMENT AT [facility]. NO OTHER CHANGES THIS SHIFT.
[2021-02-21 05:51] LABS: BASOPHILS ABSOLUTE AUTO 0.06 K/mm3 (0.00-0.23); BASOPHILS PERCENT AUTO 1 % (0-2); EOSINOPHILS ABSOLUTE AUTO 0.15 K/mm3 (0.00-0.68); EOSINOPHILS PERCENT AUTO 1 % (0-6); Hematocrit 33.6 % (37.0-53.0); Hemoglobin 11.5 g/dL (13.5-17.5); IMMATURE GRAN ABSOLUTE AUTO 0.07 K/mm3 (0.00-0.10); IMMATURE GRAN PERCENT AUTO 1 % (0-1); LYMPHOCYTES ABSOLUTE AUTO 1.28 K/mm3 (0.84-5.20); LYMPHOCYTES PERCENT AUTO 11 % (21-46); MONOCYTES ABSOLUTE AUTO 0.46 K/mm3 (0.16-1.47); MONOCYTES PERCENT AUTO 4 % (4-13); Mean Corpuscular HGB Conc 34.2 g/dL (31.5-36.5); Mean Corpuscular Volume 85 fL (80-100); Mean Platelet Volume 9.8 fL (9.1-12.4); NEUTROPHILS ABSOLUTE AUTO 9.52 K/mm3 (1.96-9.15); NEUTROPHILS PERCENT AUTO 83 % (41-73); Platelet Count 204 K/mm3 (150-400); RDW Coefficient Variation 13.7 % (11.7-14.2); RDW Standard Deviation 42.3 fL (35.1-46.3); Red Blood Cell Count 3.96 M/mm3 (4.30-5.90); White Blood Cell Count 11.54 K/mm3 (4.00-11.30)
--- NOTE | 2021-02-21 05:54 | NUR ---
SHIFT SUMMARY A/O TO SELF ONLY, VISUAL AND AUDITORY HALLUCINATIONS NOTED. RESTLESS T/O NIGHT. IMPULSIVE, ATTEMPTING TO GET OOB. MESERET RESTRAINT PLACED FOR SAFETY. VSS, BED IN LOWEST POSITION WITH ALARM ON AND CALL LIGHT IN REACH. WILL CONTINUE TO MONITOR AND REPORT TO ONCOMING RN.
[2021-02-21 06:11] LABS: Bun/Creatinine Ratio 20.7 (12.0-20.0); Calcium, Blood 9.3 mg/dL (8.5-10.1); Creatinine, Blood 1.45 mg/dL (0.60-1.20); Potassium, Blood 4.1 mmol/L (3.5-5.5)
--- NOTE | 2021-02-21 16:33 | NUR ---
SHIFT SUMMARY PT IS AO TO SELF. PT DENIES PAIN, N/V, SOB. PT MEDICATED WITH PRN ZYPREXA FOR AGITATION X1 THIS SHIFT. PT IS IMPULSIVE AND BED/CHAIR ALARM IS ON. PT UP IN CHAIR T/O SHIFT. PT IS ONE ASSIST FOR TRANSFERS UNLESS AGITATED. PLAN WAS FOR [place] [employer] TO VISIT PT TODAY. PT DID NOT HAVE VISITORS THIS SHIFT. PT IS IN BED, CALL LIGHT IN REACH, ALARM ON. THIS RN WILL CONTINUE TO MONITOR PT T/O SHIFT.
--- NOTE | 2021-02-22 05:35 | NUR ---
BOAT DESIGNER SUMMARY MEDICATED PT WITH SCHEDULED ATIVAN, HALDOL, AND ZYPREXA AT START OF SHIFT. PT BECAME QUITE AGITATED AROUND 2100 AND WAS GETTING OUT OF BED AND BECAME AGRESSIVE WITH STAFF AND NOT FOLLOWING DIRECTION. PT SEEMS TO HAVE SOME SIGNIFICANT SUNDOWNERS. MEDICATED WITH 10 MG IM ZYPREXA WHICH DID HELP PT RELAX A BIT BUT HE DID LAY IN BED RESTLESS FOR A FEW HOURS BEFORE FINALLY FALLING ASLEEP. PT HAS SLEPT ROUGHLY 5 HOURS TONIGHT THUS FAR AND HAS NOT REQUIRED ANY PHYSICAL RESTRAINTS. VSS, WILL CONTINUE TO MONITOR.
--- NOTE | 2021-02-22 10:22 | NUR ---
PT UPDATE FROM ANAYA THIS RN RECEIVED PHONE CALL FROM TISHA JULIEN, WHO STATES THE OF THIS PT HAS THIS AM. ANAYA VERBALIZED THAT HE WOULD NOT BE RELEASING THAT INFORMATION TO PT DUE TO THE POTENTIAL FOR PSYCHOLOGICAL DISTRESS IT MAY CAUSE. PT IS CONFUSED AND IN ROOM. PT HAS AGITATION AT TIMES, BUT CURRENTLY RESTING PEACEFULLY IN ROON.
--- NOTE | 2021-02-22 16:37 | NUR ---
SHIFT SUMMARY PT IS AO TO SELF. PT SLEPT MOST OF SHIFT UNTIL EVENING WITH INCREASED AGITATION TOWARDS STAFF. PT MEDICATED WITH SCHEDULED ZYPREXA THIS WILLIAN. PT 1-2 ASSIST FOR TRANSFERS. PT DENIES PAIN, N/V, SOB. PT APPETITE POOR THIS AM DUE TO SEDATION, BUT GOOD THIS WILLIAN. PT DID NOT HAVE VISITORS. PLAN IS FOR PLACEMENT. PT UP TO CHAIR FOR MEALS. PT IS IN BED, ALARM ON, CALL LIGHT IN REACH AND LOW POSITION.
--- NOTE | 2021-02-22 22:32 | NUR ---
MULTIPLE EPISODES OF GETTING OUT OF BED EARLIER, ALMOST FELL, WAS CAUGHT BY STAFF HE WAS TEETERING AFTER MULTIPLE REDIRECTIONS AND MEDICATIONS ORDERED. NOT REDIRECTABLE. ORDERS FOR MESERET VEST AND 4 RAILS OBTAINED AND APPLIED. CALL LIGHT IN REACH. CONTINUES TO MUMBLE AND VERBALIZE AGITATION. SAFETY ENCOURAGED. WILL CONT TO MONITOR.
--- NOTE | 2021-02-23 02:58 | NUR ---
GLASS INSPECTOR SUMMARY MULTIPLE EPISODES OF CLIMBING OUT OF BED, ALMOST FALLING AT SHIFT COMMENCE. MEDICATED BUT STILL VERY AGITATED AND UNSTEADY. MESERET APPLIED AFTER PT ALMOST FELL DUE TO UNSTEADINESS AND UNWILLINGNESS TO REDIRECT, PER MD ORDERS WITH 4 RAILS UP. CALL LIGHT IN REACH. CONTINUES TO CALL OUT, PULL AT MESERET AND TRY TO GRAB AT POLES, ETC NEAR BED. SAFETY ENCOURAGED. ON CAMERA, WILL CONTINUE TO MONITOR
--- NOTE | 2021-02-23 09:26 | NUR ---
PT ALERT AND CONFUSED, AGITATED AND WANTS TO CLIMB OFF THE BED, NO ACUTE DISTRESS, MEDS GIVEN IN PUDING, HELD THE CUP NURSE TRIED TO GIVE HIM WATER. PT LEFT ALONE, CALL LIGHT IN PLACE , CONT WITH MESERET RESTRAIT AND CONTINUE MONITOR BY STAFF.CALL LIGHT IN PLACE.
--- NOTE | 2021-02-23 14:14 | NUR ---
PT TRYING TO HIT ON STAFF HELP HIM WITH [facility]. PT TRYING TO GET OUT BED, INSULTIVE TO STAFFS, REDIRECTED WITH LITTLE EFFECT.CALL LIGHT IN PLACE, MONITORING CONT
--- NOTE | 2021-02-23 18:18 | NUR ---
PT REMAIN STABLE,CONTINUE ON SAFETY PRECAUTIONS WITH RESTRAINT ON,TIOLETTED NEEDED, APPETITE ADEQUATE,NO DISTRESS NOTED,ALL LIGHT WITHIN REACH.
--- NOTE | 2021-02-24 03:51 | NUR ---
RECEIVED PT IN BED AGITATED, AGRESSIVE, AND IMPULSIVE. ATTEMPTS TO PUNCH AND KICK WHEN REDIRECTED. PT TOOK HS MEDS. FELL ASLEEP AND REMAINED ASLEEP THROUGHOUT THE NIGHT. ATTEND IN PLACE. TURNED AND REPOSIITONED FOR COMFORT. VSS. SAFETY AND COMFORT MEASURES MAINTAINED. MESERET VEST IN PLACE. CMS INTACT.
--- NOTE | 2021-02-24 07:42 | NUR ---
PT RECIEVED FROM OUT GOING NURS, SLEEPING AND SNORING, IN NO DISTRESS. VITALS STABLE, CALL LIGFHT IN PLACE, RESTRAINT IN PLACE.CONT TOMONITOR.
--- NOTE | 2021-02-24 14:45 | NUR ---
PT HAD A SHOWER EARLER, CHANGED BED LINENS AND CLOTHES, RETRIANT D/C AT [address] GREGORY, RETRAINT NEEDS TO BE OFF FOR 72 HOURS FOR PT TO QUALITY PLACEMENT IN A DEMENTIA UNIT. PT PLACED ON CHAIR WITH A CHAIR ALARM ON.HAD LUNCH WITH A FAIR APPETITE. PLACED IN BED AND MONITORED CLOSELY WITH BED ALAMR ON. PRESENTLY PT WANTED TO WALK AND THE ACCOUNT CLERK WALKED WITH HIM AND THE NURSE BACK AND FORTH THE HALLWAY.PT VERBALISES MORE AND FOLLOWS DIRECTIONS FAIRLY WELL. BACK IN CHAIR, ALARM ON AND PT USES THE BR WITH STANDBY ASSIST. CALL LIGHT WITHIN REACH AND MONITOR CONTNIUES.
--- NOTE | 2021-02-24 15:48 | NUR ---
PT HAS BEEN USING THE BR AND VOIDING PROPERLY, BLADDER SCANNED ORDERED, [id number] NOTED, BLADDER NON DISTENDED AND DENIED ANY PAIN OR DISCOMFORT. MONITOR CONT.
--- NOTE | 2021-02-24 20:30 | NUR ---
RECEIVED PT IN BED CONFUSED. ASSISTED TO BSC ONCE. MODERATE LOOSE STOOL ONCE. PT WAS ASSISTED BACK TO BED. HE BECAME AGRESSIVE WITH AUDITORY AND VISUAL HALLUCINATIONS. ATTEMPTED TO GET OOB UNASSISTED AND ALMOST FELL. UPON REDIRECTIONS, PT TRIED TO PUNCH AND KICK STAFF. B/P 93/54, HR 80. DR. TINOCO WAS NOTIFIED OF PT'S BEHAVIOR AND B/P READING. ORDER GIVEN FOR RESTRAINTS. DR. TINOCO ADVISED TO GIVE ZYPREXA AND TO RECHECK B/P BEFORE ADMINISTERING ATIVAN. PT COMPLIED WITH MEDS. PO FLUIDS ENCOURAGED. RESTRAINTS INITIATED. ASSISTED WITH ADLS. SAFETY PRECAUTIONS MAINTAINED.
--- NOTE | 2021-02-24 23:46 | NUR ---
B/P 114/66. PT REMAINS RESTLESS, ANXIOUS, AGITATED AND TREATENING. ATIVAN GIVEN.
--- NOTE | 2021-02-25 04:45 | NUR ---
PT WAS AGRESSIVE AND IMPULSIVE ALL SHIFT. VEST AND UPPER SOFT WRIST RESTRAINTS IN PLACE. CMS INTACT. CALMED DOWN AFTER ATIVAN DOSE. STILL WITH PERIODS OF HALLUCINATIONS AND RESTLESSNESS, BUT CALMER. NO RELIEF OF SYMPTOMS WITH ZYPREXA. FIDGETING IN BED AT TIMES BUT WITH EYES CLOSED. VSS. SAFETY MEASURES MAINTAINED. ENCOURAGED PO FLUIDS. ATTEND IN PLACE.
--- NOTE | 2021-02-25 12:10 | NUR ---
DR REYNAGATRATE ORDERED TO D/C'D RETRIANTS SO PT CAN GET PLACEMENT IN A DEMENTIA UNIT. RECIEVED PT IN BED SLEEPING, AWAKE AT ABOUT 1105AM, TOILETTED, BREAKFAST GIVEN,HAD A GOOD APPETITE.BED ALARM ACTIVATED, CONTINUE TO MONITOR CLOSELY.CALL LIGHT IN PLACE.
--- NOTE | 2021-02-25 14:17 | NUR ---
PT IS OUT OF BED,ASSISTED WITH AMBULATION WITH PT USING THE WALKER AND STAFF SUPPORTING WITH GAIT BELT. IN HALLWAY, SITTED IN RECLINNER CLOSER TO WINDOW AND WATCHING FROM OUTSIDE, BED ALARM ON AND A DRINK BESIDES HIM, STAFF WATCHING CLOSELY, SAFETY PRECAUTIONS MAINTAINED.
--- NOTE | 2021-02-25 16:39 | NUR ---
PT IN ROOM SITTING IN RECLINNER WITH CHAIR ALARM ON. PT TIOLETTED EVERY 2 HOURS,VOIDING CLEAR YELLOW URINE.
--- NOTE | 2021-02-25 18:33 | NUR ---
PT CONTINUE TO BE CONFUSED WITH SOME PERIODS OF AGITAION, REDIRECTED WITH SOME EFFECT,OFF RETRIANTS ORDERED.APPETITE ADEQUATE AND PO FLIUDS TOLERATED WELL.CALL LIGHT WITHINN REACH, CONTINUE WITH SAFETY PRECAUTIONS.
[2021-02-26 05:25] LABS: BASOPHILS ABSOLUTE AUTO 0.05 K/mm3 (0.00-0.23); BASOPHILS PERCENT AUTO 1 % (0-2); EOSINOPHILS ABSOLUTE AUTO 0.16 K/mm3 (0.00-0.68); EOSINOPHILS PERCENT AUTO 1 % (0-6); Hematocrit 34.8 % (37.0-53.0); Hemoglobin 11.9 g/dL (13.5-17.5); IMMATURE GRAN ABSOLUTE AUTO 0.06 K/mm3 (0.00-0.10); IMMATURE GRAN PERCENT AUTO 1 % (0-1); LYMPHOCYTES ABSOLUTE AUTO 1.65 K/mm3 (0.84-5.20); LYMPHOCYTES PERCENT AUTO 15 % (21-46); MONOCYTES ABSOLUTE AUTO 0.63 K/mm3 (0.16-1.47); MONOCYTES PERCENT AUTO 6 % (4-13); Mean Corpuscular HGB Conc 34.2 g/dL (31.5-36.5); Mean Corpuscular Volume 85 fL (80-100); NEUTROPHILS ABSOLUTE AUTO 8.55 K/mm3 (1.96-9.15); NEUTROPHILS PERCENT AUTO 77 % (41-73); Platelet Count 199 K/mm3 (150-400); RDW Standard Deviation 43.7 fL (35.1-46.3); Red Blood Cell Count 4.11 M/mm3 (4.30-5.90)
--- NOTE | 2021-02-26 05:46 | NUR ---
PATIENT ALERT AND ORIENED X3. PATIENT DENIES PAIN OR DISTRESS. PATIENT APPEARED CONFUSED WITH PERIODS OF FORGETFULNESS, PATIENT WAS EASILY REDIRECTABLE. PATIENT WAS UP TO USE THE BSC X2 WITH VERY MINIMAL OUTPUT.PATIENT SLEPT WELL WITH NO ACUTE EVENT.
--- NOTE | 2021-02-26 06:11 | NUR ---
PATIENT NOTED WITH INCREASED AGITATIENT, ANXIETY AND RESTLESSNESS AT START OF SHIP. PATIENT WAS PLACED IN THE RECLINERN CHAIR WITH OBSERVATION. PATIENT CONTINUES TO BE AGITATED, ATTEMPTING TO HIT STAFF WHEN TRYING TO POSITIONED IN THE CHAIR. PATIENT WAS TRYING TO JUMP OUT OF THE CHAIR, HE WAS ASSISTED BY TWO STAFF AND AMBULATED WITH HELP THROGH THE HALLWAY. PATIENT CONTINUE TO BE AGITATED. PATIENT WAS MEDICATED WITH ATIVAN, ZYPREXIA AND MELATONIN FOR SLEEP. PATIENT'S CARDURA WAS HELD PATIENT'S BP WAS NOTED TO BE LOW. PATIENT SLEPT THROUGH THE NIGHT UNTIL EARLY THIS MORNING, PATIENT GOT UP AND WAS CLIMBIING OUT OF BED. PATIENT WAS COMBATIVE AND ATTEMPTING TO HIT STAFF WHEN TRYING TO ASSIST HIM BACK TO BED. PATIENT WAS MEDICATED WITH PRN ZYPREXA WHICH HE SPIT OUT. DR. MARCUS WAS CALLED AND GOT AN ORDER FOR HALDOL 3MG IM AND TO BLADDER SCAN PATIENT. PATIENT WAS GIVEN HALDOL IM WITH GOOD EFFECT. PATIENT WAS BLADDER SCAN FOR 482CC AND 600ML OUT. PATIENT SLEEPING NOW COMFORTABLY. WILL CONTINUE TO MONITOR.
[2021-02-26 06:20] LABS: Albumin, Blood 3.3 g/dL (3.4-5.0); Albumin/Globulin Ratio 0.8 (0.8-1.8); Bilirubin, Total 1.3 mg/dL (0.1-1.0); Bun/Creatinine Ratio 27.1 (12.0-20.0); Calcium, Blood 9.5 mg/dL (8.5-10.1); Creatinine, Blood 2.07 mg/dL (0.60-1.20); Globulin, Blood 3.9 g/dL (2.2-4.0); Magnesium, Blood 2.2 mg/dL (1.6-2.4); Potassium, Blood 4.3 mmol/L (3.5-5.5); Thyroid Stimulating Hormone 1.91 uIU/mL (0.360-4.800); Total Protein, Blood 7.2 g/dL (6.4-8.2)
--- NOTE | 2021-02-26 13:37 | NUR ---
PT SLEEPING, RESPONSE TO TOUCH AND VERBAL STIMULI BUT GOES BACK TO SLEEP, UNABLE TO TAKE AM MEDS AND FOOD.VITALS STABLE, BED ALARM ON , CALL LIGHT IN PLACE AND WILL CONTINUE TO [facility]. NOTIFIED.
--- NOTE | 2021-02-26 14:52 | NUR ---
Met pt. lying in bed resting ,seems to be much better, offered prayers.
--- NOTE | 2021-02-26 17:10 | NUR ---
PT FINALLY WAKE UP ABOUT 1505, ALERT AND CONFUSED, HALLUCINATING,AGITATED,REDIRECTED WITH LITTLE EFFECT.PT WASHED AND PLACED IN RECLINER IN HALLWAY FOR CLOSER MONITOR.TOLETTED NEEDED, PUT BACK TO BED, POOR APPETITE FOR LUNCH,VOIDING WELL, USED THE BR TWICE, AND URINAL 800ML OF CLEAR YELLOW URINE,NON DISTENDED BLADDER, DENIED PAIN OR DISCOMFORT.TOLERATEING PO FLIUDS.CALL LIGHT IN PLACE, BED ALARM ACTIVATED,WILL CONT TO MONITOR.
--- NOTE | 2021-02-27 04:39 | NUR ---
PATIENT WAS WIDE AWAKE AND ALERT AT START OF SHIFT. PATIENT WAS NOTED WITH INCREASED AGITATION, ANXIETY, RESTLESSNESS. PATIENT WAS TRANSFERED TO THE RECLINER AND BROUGHT OUT TO THE HALLWAY FOR CLOSER OBSERVATION. PATIENT WAS UNABLE TO STAY CALM IN THE RECLINER. PATIENT WAS ATTEMPTING TO CLIMB OUT OF THE RECLINER, STAFF TRIED TO ASSIST AND REDIRECT, PATIENT WAS VERY CONFUSED, ATTEMPTING TO HIT AND PUSH STAFF. PATIENT WAS MEDICATED WITH PRN ZYPREXA 10 MG IM X1 FOR INCREASED AGITATION, RESTLESSNESS AND AXIETY WITH MINIMAL EFFECT. PATIENT VOIDED LARGE AMOUNT IN THE PULLUP X2. PATIENT CLEANED AND CHANGED, PATIENT CARE DONE, BED IN LOW POSITION AND CALL LIGHT IN PLACE. WILL CONTINUE TO MONITOR AND MAINTAINED SAFETY.
--- NOTE | 2021-02-27 06:16 | NUR ---
PATIENT CONTINUE TO BE VERY UNSTABLE, AGITATED, UNABLE TO LISTEN OR FOLLOW DIRECTIONS, TRYING TO JUMP OUT OF BED. PATIENT WAS MEDICATED WITH ZYPREXA 10MG IM AT 04O3 WHICH DID NOT SEEM TO HELP. PATIENT WAS NOW GIVE ZYPREXA 5MG PO AT 0611 THIS MORNING TO HELP WITH HIS ANXIETY, EFFECT PENDING.
--- NOTE | 2021-02-27 08:08 | NUR ---
Pt alert and confused,received report from evening or night nurse supervisor stating awake most part of night,combactive,agitated,hallucinating,hitting and prns gien with minimal effect.Pt toiletted voided properly and placed in recliner in hallway for closer monitoring as he continously attempting to crawl out of bed. Safety precautions maintained will cont to monitor.
--- NOTE | 2021-02-27 10:27 | NUR ---
PT SLEEPING AND SNORING AT THIS TIME, UNABLE TO SWALLOW AM MEDICATIONS,DR FULTON PUT IN SOME NEW ORDERS,WILL CONTINUE TO CLOSELY MONITOR IN HALLWAY.
--- NOTE | 2021-02-27 11:39 | NUR ---
ATIVAN ATIVAN CHANGED FROM IV TO IM PER TELE ORDER FROM DR. PINA.
--- NOTE | 2021-02-27 12:16 | NUR ---
PT WAKE UP 1053,WITH SEVERE AGITATION, AND CONFUSED,CLIMBING OUT OF THE RECLINER, COMBACTIVE TO STAFF THEY TRIED TO INTERVENED TO KEEP PT SAFE,BREAKFAST OFFERED TOOK A BITE AND REFUSED EATING, THIS NURSE FED HIM AND PATIENTLY HE ATE 95%. ANOTHER NURSE HELPED WITH HIS MEDICATIONS, AM MEDS GIVEN AND PRN ATIVAN, HALDOL AND BENADRYL ADMINISTERED ORDERED PT ATTEMPTED TO BITE THIS NURSE THEY TRIED TO GIVE MEDS.PRESENTLY PT IS CALM IN RECLINER AND PLACED IN [address] FOR CLOSED MONITORING.
--- NOTE | 2021-02-27 15:06 | NUR ---
Pastoral vist is taken care of and prayed for pt.
--- NOTE | 2021-02-27 18:44 | NUR ---
PT MEDIACTED AGAIN WITH ATIVAN,HALDOL AND BENADRYL 1615 FOR INCREASED AGITATION,HITTIND AND HALLUCINATION, PT CALM, IN AND OUT SLEEP AND AWAKE,CONTINUE TO MONITOR IN HALLWAY HE WILL CONTINUOUSLY ATTEMPT TO GET OUT OF BED.TIOLETTED X4 AND URINATED PROPERLY,NON DISTENDED BLADDER.
--- NOTE | 2021-02-28 04:47 | NUR ---
PATIENT WAS IN THE RECLINER CHAIR AT START OF SHIFT. PT NOTED WITH AGITATION AND RESTLESSNESS. PATIENT WAS MEDICATED WITH HIS SCHEDULED MEDICATIONS AND REPOSITIONED WELL IN THE RECLINER AND PATIENT SLEPT THE ENTIRE NIGHT WITH PERIODS OF RESTLESSNESS AND HALLUCINATIONS. PATIENT'S LEG GOT STUCK AT THE SIDE OF THE CHAIR AND PATIENT SUSTAINED A SUPERFICIAL OPEN AREA. AREA CLEANED, 4X4 APPLIED AND COVERED WITH A GUAZE BANDAGE ROLL. PATIENT UNDER CLOSED OBSERVATION IN THE RECLINER CHAIR ON THE [address] WAY SLEPT ALL NIGHT WITH NO FURTHER AGITATION OR RESTLESSNESS. PATIENT DID NOT REQUIRE ANY PRN'S HE SLEPT THE ENTIRE SHIFT. WILL CONTINUE TO MONITOR.
--- NOTE | 2021-02-28 10:56 | NUR ---
PT RECIEVED FROM OUT GOING SHIFT,SLEEPING IN RECLINER IN HIS ROOM,NO DISTRESS NOTED,UNABLE TO TAKE AM MEDS.
--- NOTE | 2021-02-28 17:51 | NUR ---
PT ALERT AND CONFUSED, CONTINUE TO BE AGITATED,COMBACTIVE HITTING AND HITTING THE STAFFS. HAD A SHOWER AND LT MARTÍNEZ SKIN TEAR DRESSING CHANGED. PRN ATIVAN ,BENADRYL AND HALOOL GIVEN VIA IM X 2 FOR INCREASED AGITATION WITH GOOD EFFECT. PT ON CLOSE MONITOR BY STAFF ALL THE TIME.
--- NOTE | 2021-02-28 18:00 | NUR ---
PT BLADDER SCANNED DUE TO UNABLE TO VOID WHEN PLACED ON TOILET,766 ML NOTED IN SCAN AND 875ML REMOVED FROM STRAIGHT CATH. PT FELT SOME RELIEF FROM THE DISTENDED BLADDER. YELLOW URINE WITH SOME FOUL ODOR NOTED.
--- NOTE | 2021-03-01 06:05 | NUR ---
PATIENTIN THE RECLINER CHAIR ALL NIGHT. PATIENT APPEARED COMFORTABLE SLEEPING WITH NO AGITATION, RESTLESSNESS OR DISTRESS. PATIENT WAS BLADDER SCAN X2 FOR 278ML AND 226 RESPECTIVELY. PATIENT CARE WAS DONE, CALL LIGHT IN PLACE AND CHAIR ALARM IN PLACE. PATIENT TOOK ALL HS SCHEDULED MEDS WITH NO DISTRESS.
--- NOTE | 2021-03-01 15:41 | NUR ---
PATIENT FINALLY WOKE UP AT ~1430. ATE A FEW BITES OF HIS LUNCH, DRANK TWO CUPS OF DIET PEPSI. HE IS ALERT, ORIENTED X 0, IS IMPULSIVE AND CANNOT FOLLOW DIRECTIONS. AMBULATED TO , OUT IN HALLWAY X 3 WITH GAIT BELT AND FWW. ATTEMPTED TO GIVE DAILY PO MEDS, BUT PT SPIT OUT (DID SWALLOW XARELTO). HAVING A/V HALLUCINTATIONS. PLACED ON REMOTE MONITORING FOR SAFETY HE IS VERY HIGH FALL RISK, IMPULSIVE, AND NOT REDIRECTABLE AT TIMES.
--- NOTE | 2021-03-01 18:39 | NUR ---
SHIFT SUMMARY: NO ACUTE EVENTS. PT AWAKE ALL AFTERNOON, NO SEDATING MEDS GIVEN. IS STILL IMPULSIVE, CONFUSED, HAVING HALLUCINATIONS, SWEARING ALMOST CONTINUOUSLY. EATING ONLY A FEW BITES OF FOOD, NEEDS ENCOURAGEMENT BUT APPEARS SUSPICIOUS OF STAFF ACTIONS. CANNOT FOLLOW DIRECTIONS. UNABLE TO GIVE PO MEDICATIONS, HE SPITS THEM OUT. NO RESTRAINTS IN USE. BLADDER SCAN THIS AFTERNOON SHOWED > 900 ML URINE; STRAIGHT CATH X 1 FOR 800 ML OUT, CLER BHARATI URINE, TOLERATED WELL. IS SLIGHTLY JAUNDICED.
--- NOTE | 2021-03-02 04:33 | NUR ---
PATIENT CONTINUED TO BE VERY AGITATED, RESTLESS, COMBATIVE WHEN STAFF ATTEMPTS TO DO PATIENT CARE. PATIENT CLIMBING OUT THE RECLINER, NOT FOLLOWING DIRECTIONS, KICKING AND GRABBING. PATIENT WAS MEDICATED WITH IM ATIVAN, BENEDRYL, AND HALDOL WITH GOOD EFFECT. PATIENT WAS CLEANED AND GIVE CLEAN ATTENDS. PATIENT WAS BLADDER SCAN FOR 264ML, DID NOT REQUIRE STRAIGHT CATH. PATIENT IS AWAKE THIS EARLY AM STILL IN THE RECLINER AND TALKING TO HIMSELF WITH NO AGITATION. WILL CONTINUE TO MONITOR.
--- NOTE | 2021-03-02 18:08 | NUR ---
SHIFT SUMMARY: PT AWAKE ALL DAY, CONSTANTLY MOVING AND FIDGETING. IS MILDLY COMBATIVE AT TIMES, SCRATCHES AND PINCHES WHILE STAFF PROVIDING CARE. ATTEMPTED TO AMBULATE IN HALLWAY WITH 2 PERSON, GAIT BELT, AND FWW BUT HAS A VERY HARD TIME FOLLOWING DIRECTIONS AND IS DIFFICULT TO REDIRECT. SPEECH IS NONSENSICAL MOST OF THE TIME. BLADDER SCAN THIS MORNING SHOWED > 700 ML; STRAIGHT CATH X 1 WITH RELIEF. LAST BM DOCUMENTED ON 02/24; LACTULOSE GIVEN. PT DID NOT EAT ANY OF HIS MEALS, WILL TAKE PO FLUIDS.
--- NOTE | 2021-03-03 04:23 | NUR ---
SHIFT SUMMARY PT IS A 76 Y/O MALE, ADMITTED FOR DEMENTIA. HE IS A&O X 0, BEDREST, COMBATIVE AND AGITATED AT TIMES. NO S/S OF PAIN, NAUSEA OR SOB. VITAL SIGNS STABLE. PT SLEPT WELL THROUGH THE NIGHT. BLADDER SCAN THIS AM SHOWED 488 RESIDUAL. NO OTHER ACUTE CHANGES IN PT CONDITION NOTED. WILL CONTINUE TO MONITOR AND TREAT PER EMAR UNTIL HAND OFF TO DAY SHIFT RN.
[2021-03-03 14:23] LABS: Bun/Creatinine Ratio 32.7 (12.0-20.0); Calcium, Blood 9.6 mg/dL (8.5-10.1); Creatinine, Blood 1.5 mg/dL (0.60-1.20); Potassium, Blood 4.2 mmol/L (3.5-5.5)
--- NOTE | 2021-03-03 18:43 | NUR ---
SUMMARY- PT ALERT TO SELF. UP IN CHAIR MOST OF THE DAY. WAS ABLE TO AMBULATE TO BATHROOM 2 PERSON SBA WITH GAIT BELT AND WALKER AND VOIDED IN TOILET THIS AM. HAS A SHOWER. DIFFICULTY MANEUVERING AROUND IN THE BATHROOM. VERY RIGID AND POOR COORDINATION, GOOD STRENGTH. DRANK ENTIRE GLUCERNA FOR LUNCH AND A LOT OF WATER TODAY WITH FREQ OFFEREING. SET UP FOR LUNCH AND FED SELF ABOUT 20%. ASSISTED WITH DINNER AND ATE 20% PLUS MOST OF GLUCERNA. PT CONT TO NOT VOID UNLESS UP ON TOILET. AND NEEDS STRAIGHT CATH PRN. PT HAS YEASTY RASH AND NYSTATIN ORDERED. ROUTINE PSYCH MESD SEEM EFFECTIVE TO DECREASE AGGITATION. PT COOPERATIVE HALF OF THE DAY, AND LABILE MOODS WITH PERIODS OF AGGITATION AND AGGRESSION, VERBALLY AND PUNCHED RN IN ARM. GRABBED NURSING HOME MANAGER AGGRESSIVELY. BACK TO BED AFTER DINNER AND HAD TO HAVE CONSTANT MNT PT ATTEMPTINT TO GET OOB.
--- NOTE | 2021-03-04 05:25 | NUR ---
SHIFT SUMMARY PT IS A 76 Y/O MALE, ADMITTED FOR DEMENTIA. HE IS A&O X 0, DIFFICULT TO DIRECT AND COMBATIVE WITH STAFF AT TIMES, 1PA WHEN OUT OF BED. NO S/S OF ACUTE PAIN, NAUSEA OR SOB. VITAL SIGNS STABLE. NO ACUTE CHANGES IN PT CONDITION NOTED DURING THE NIGHT. WILL CONTINUE TO MONITOR AND TREAT PER EMAR UNTIL HAND OFF TO DAY SHIFT RN.
[2021-03-04 17:27] LABS: BASOPHILS ABSOLUTE AUTO 0.04 K/mm3 (0.00-0.23); BASOPHILS PERCENT AUTO 0 % (0-2); EOSINOPHILS ABSOLUTE AUTO 0.01 K/mm3 (0.00-0.68); EOSINOPHILS PERCENT AUTO 0 % (0-6); Hematocrit 37.5 % (37.0-53.0); Hemoglobin 12.2 g/dL (13.5-17.5); IMMATURE GRAN ABSOLUTE AUTO 0.08 K/mm3 (0.00-0.10); IMMATURE GRAN PERCENT AUTO 1 % (0-1); LYMPHOCYTES ABSOLUTE AUTO 0.54 K/mm3 (0.84-5.20); LYMPHOCYTES PERCENT AUTO 3 % (21-46); MONOCYTES ABSOLUTE AUTO 0.61 K/mm3 (0.16-1.47); MONOCYTES PERCENT AUTO 4 % (4-13); Mean Corpuscular HGB 28.7 pg (26.0-34.0); Mean Corpuscular HGB Conc 32.5 g/dL (31.5-36.5); Mean Corpuscular Volume 88 fL (80-100); Mean Platelet Volume 10.4 fL (9.1-12.4); NEUTROPHILS ABSOLUTE AUTO 16.12 K/mm3 (1.96-9.15); NEUTROPHILS PERCENT AUTO 93 % (41-73); Platelet Count 223 K/mm3 (150-400); RDW Coefficient Variation 13.8 % (11.7-14.2); RDW Standard Deviation 45.1 fL (35.1-46.3); Red Blood Cell Count 4.25 M/mm3 (4.30-5.90)
--- NOTE | 2021-03-04 17:31 | NUR ---
PT TX TO ICU 2 AT 1650- PT HAD ACUTE DECREASE IN BP AND MENTATION. BASELINE HAS DEMENTIA AND HALLUCINATING, FEISTY AND ACTIVE, FREQ MOVING AND ROLLING SIDE TO SIDE IN BED. UP IN CHAIR MOST OF THE DAY. AFTER NOT HAVING A BM FOR A WEEK, GIVEN LAXATIVE. PT HAD XXXLG BM X 3. STARTED HARD A ROCK AND MOVING INTO DIARRHEA PRATT TO ORANGE NO BLOOD NOTED. PT HAD WAS TOLERATING FOOD AND FLUIDS FOR BREAKFAST AND LUNCH. BECAME NAUSEATED AFTER LUNCH SO BACK TO CHAIR TO BED AT AROUND 1400. ASSISTED WITH BOWEL CARE AND BOWEL TONES ALWAYS NORMOACTIVE. HEARD HYPERRESONANT SOUND IN ABD. BP CHECKED AT 1440 105/62 HR 87 AND RECHECKED AT 1615 BECAUSE VS HAD NOT GONE THROUGH TO COMP. AT 1615 BP 80/52 HR 48- THIS IS WHEN WE CALLED [facility] AND DR MESA ALONG WITH DECREASED MENTATION. 1650 TO ICU 2
[2021-03-04 17:43] LABS: Bun/Creatinine Ratio 25.4 (12.0-20.0); Calcium, Blood 9.4 mg/dL (8.5-10.1); Creatinine, Blood 2.01 mg/dL (0.60-1.20); Potassium, Blood 4.9 mmol/L (3.5-5.5)
[2021-03-04 18:51] LABS: Source, Urine Clean Catch
[2021-03-04 18:56] LABS: Appearance, Urine Cloudy (Clear); Bilirubin, Urine Neg (Neg); Blood, Urine 5+ (Neg); Color, Urine Yellow (P-Yellow); Glucose Qualitative, Urine Neg (Neg); Ketones, Urine Neg (Neg); Leukocyte Esterase, Urine Neg (Neg); Nitrite, Urine Neg (Neg); Protein, Urine 2+ (Neg); Specific Gravity, Urine 1.025 (1.003-1.022); Urobilinogen, Urine NORM (Normal)
--- NOTE | 2021-03-04 19:01 | NUR ---
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
[2021-03-04 19:14] LABS: Bacteria Few /hpf; Red Blood Cells, Urine 50-100 /hpf (0-2); Squamous Epithelial Cells Few /hpf (Few)
[2021-03-04 19:15] LABS: Uric Acid Crystals Few /hpf
--- NOTE | 2021-03-04 21:42 | NUR ---
ASSUMED CARE REPORT RECEIVED FROM DAY SHIFT RN. PT IN BED, CONFUSED, IN SWB RESTRAINTS. PT DOES NOT FOLLOW COMMANDS. RIGHT PUPIL NOTED TO BE 3MM AND REACTIVE AND LEFT PUPIL 5MM AND FIXED. PT'S SPEECH IS MOSTLY GARBLED. PT HAD TWO LARGE LIQUID BMS SO FAR IN THE SHIFT, ORDER RECEIVED FOR RECTAL TUBE. RECTAL TUBE IN PLACE. SEE SHIFT ASSESSMENT. MEDS NOT GIVEN VIA PO DUE TO PT MENTAL STATUS. DR ARORA MADE AWARE. WILL CONTINUE TO MONITOR.
--- NOTE | 2021-03-05 05:48 | NUR ---
SHIFT SUMMARY NO ACUTE EVENTS OVERNIGHT. PT REMAINS CONFUSED, AAOX0, DOES NOT FOLLOW COMMANDS, DOES NOT TRACK. PT DOES MOVE ALL EXTREMITIES. PT IN SWB RESTRAINTS. PT AGITATED UPON STIMULATION, KICKS AND USES SWEAR WORDS. PRN ATIVAN GIVEN X 1. PUPILS STILL UNEQUAL. RIGHT PUPIL 3MM AND REACTIVE AND LEFT PUPIL 5MM AND FIXED. 500ML OF URINE DRAINED. RECTAL TUBE IN PLACE DUE TO MULTIPLE LIQUID STOOLS. 350ML OF STOOL DRAINED. REPORT TO BE GIVEN TO DAY BRANDON RN.
--- NOTE | 2021-03-05 14:00 | NUR ---
Met pt. lying in bed now is I.C.U,pt. is still confused and talking to himself, offered prayers for him.
--- NOTE | 2021-03-05 17:41 | NUR ---
Pt somnolent in AM, remains confused, garbled speech, pupils remain unequal 5mm L fixed/2mm R brisk, restraints remain for Pt attempting to get out of bed/pulling lines/attempt to hit staff, only alert to self, BP remains stable, rectal tube 300ml cristal pure liquid output, samano 625ml output cristal, discussed with MD only sedation recomendation is 4mg ativan/15mg zyprexa at night, speech eval thin liquids/puree diet only/meds crushed in applesauce.
--- NOTE | 2021-03-05 20:55 | NUR ---
ASSUMED CARE OF PT AT 1930, REPORT RECEIVED FROM LIZ CAI. PT AWAKE, PLEASANTLY CONFUSED. FOLLOWING COMMANDS, MOVING ALL EXTREMITIES. EQUAL STRENGTH TO BUE & BLE. SLIGHT FACIAL DROOP TO LEFT SIDE. PUPILS UNEVEN, L PUPIL 5 FIXED, R PUPIL 3 BRISK. PT DENIES PAIN AT THIS TIME. NS INFUSING AT 75 ML/HR. BOYLE AND RECTAL TUBE PATENT AND DRAINING TO GRAVITY.
--- NOTE | 2021-03-06 06:14 | NUR ---
SHIFT SUMMARY PT REMAINS CONFUSED T/O SHIFT, ORIENTED TO SELF ONLY. PT WITH GARBLED SPEECH, LEFT FACIAL DROOP, AND UNEVEN PUPILS. PT FREQUENTLY MOVES SELF AROUND IN BED, ATTEMPTS TO PULL ARMS OUT OF RESTRAINTS IN ATTEMPT TO REMOVE LINES/DRAINS. PT WITH LITTLE SLEEP OVERNIGHT. BOYLE DRAINING BHARATI URINE TO GRAVITY, RECTAL TUBE WITH ORANGE LIQUID STOOL DRAINING TO GRAVITY. WILL CONTINUE TO MONITOR UNTIL REPORT GIVEN TO ONCOMING RN.
--- NOTE | 2021-03-06 12:26 | NUR ---
ASSUMPTION OF CARE PATIENT AWAKE THIS MORINING. NOT ORIENTED. RESPONDS APPROPRIATELY TO SOME QUESTIONS. SPEECH GARBLED. FREQUENTLY SPEAKS IF HE IS TALKING TO SOMEONE WITH NO ONE IN THE ROOM. STRENGTH EQUAL IN ANA AND BLL. FOLLOWS COMMANDS SELECTIVELY. HE WAS TREATED FOR HYPERTENSION THIS MORNING WITH 10MG HYDRALAZINE, THIS WAS EFFECTIVE. ROOM AIR WHILE AWAKE. SR.
--- NOTE | 2021-03-06 14:01 | NUR ---
Jeimy elmore in bed , pastoral care taken care of.
[2021-03-06 15:14] LABS: Hematocrit 37.5 % (37.0-53.0); Hemoglobin 12.4 g/dL (13.5-17.5)
[2021-03-06 15:27] LABS: Anion Gap 6 mmol/L (6-16); Blood Urea Nitrogen 32 mg/dL (8-24); Bun/Creatinine Ratio 29.1 (12.0-20.0); CO2, Blood 21 mmol/L (21-32); Calcium, Blood 8.7 mg/dL (8.5-10.1); Chloride, Blood 117 mmol/L (98-108); Glomerular Filtration Rate >60 (60-); Glucose, Blood 130 mg/dL (70-99); Potassium, Blood 4.4 mmol/L (3.5-5.5); Sodium, Blood 144 mmol/L (136-145)
--- NOTE | 2021-03-06 17:09 | NUR ---
PATIENT UNABLE TO REMAIN STILL FOR CT AFTER GIVEN ORDERED 1MG ATIVAN. DR. MESA NOTIFIED, ORDERED TO CANCEL CT AND POSTPONE UNTIL PATIENT ABLE TO TOLERATE REMAINING STILL.
--- NOTE | 2021-03-06 17:44 | NUR ---
NO ACUTE EVENTS THIS SHIFT. PT STILL ORIENTEDX0-1. ATE SOME DINNER. BP STABLE.
--- NOTE | 2021-03-06 19:30 | NUR ---
ASSUMED CARE OF PT AT 1915, REPORT RECEIVED FROM JOSUE CAI. PT SITTING UP IN BED, PLEASANTLY CONFUSED. ALERT TO SELF ONLY. FREQUENTLY MOVES SELF AROUND IN BED. BOYLE DRAINING RED TINGED URINE TO GRAVITY. NS INFUSING AT 75 ML/HR. PUPILS REMAIN UNEVEN, L 5MM FIXED, R 3MM BRISK. EQUAL STRENGTHS TO BUE AND BLE. AFEBRILE. DENIES PAIN.
--- NOTE | 2021-03-07 06:04 | NUR ---
SHIFT SUMMARY PT CONTINUES TO BE CONFUSED T/O SHIFT. SLEPT MAJORITY OF THE NIGHT. 2-4L MASK IN PLACE TO MAINTAIN SPO2 >90%. PT ALERT TO SELF ONLY, APPEARS TO BE TALKING TO SOMEONE IN THE ROOM WITHOUT ANYONE BEING IN THE ROOM. PT FREQUENTLY MOVES SELF AROUND IN BED. BILATERAL WRIST RESTRAINTS REMAIN IN PLACE TO PREVENT REMOVAL OF LINES AND DRAINS. BOYLE DRAINING CLOUDY PINK TINGED URINE TO GRAVITY.
[2021-03-07 08:12] LABS: Anion Gap 5 mmol/L (6-16); Blood Urea Nitrogen 26 mg/dL (8-24); CO2, Blood 23 mmol/L (21-32); Calcium, Blood 8.7 mg/dL (8.5-10.1); Chloride, Blood 117 mmol/L (98-108); Creatinine, Blood 1.13 mg/dL (0.60-1.20); Glomerular Filtration Rate >60 (60-); Glucose, Blood 105 mg/dL (70-99); Potassium, Blood 4.1 mmol/L (3.5-5.5); Sodium, Blood 145 mmol/L (136-145)
--- NOTE | 2021-03-07 09:35 | NUR ---
ASSUMED CARE RECEIVED REPORT FROM TRELL ESTEVEZ AT 0700. PT A&O X1, TO SELF ONLY, BUT IS VERY DIFFICULT TO AROUSE AND UNABLE TO STAY AWAKE. NO PURPOSEFUL MOVEMENTS, RESTRAINTS DISCONTINUED AT 0800. ON 7L O2 VIA HIGH FLOW, INCREASED TO 15L PT DESATS VERY QUICKLY INTO 60-70'S R/T SEVERE SLEEP APNEA. LUNGS ARE CLEAR AND DIMINISHED T/O. HR IS SR IN 80-90'S, SBP 140'S. HYPOACTIVE BOWEL TONES, PT IS UNABLE TO EAT OR TAKE PO MEDS AT THIS TIME HE IS NOT ALERT. BOYLE DRAINING TO GRAVITY, YELLOW RED TINGED URINE. CURRENTLY ONLY ON 75ML/HR NS. PALLIATIVE CARE CONSULTED THIS AM AND PT WAS SEEN. CODE STATUS HAS BEEN CHANGED FROM FULL TO DNR, AND HE IS COMFORT CARE AT THIS TIME. ORDERS HAVE BEEN REVIEWED AND WILL TREAT PRESCRIBED.
--- NOTE | 2021-03-07 10:46 | NUR ---
Ethics consultation service provided. The principal is a 76 Y/O gentleman suffering from neurocognitive decline, cardiac disease, and a history of psychiatric complications. He is unable to engage in reliable medical decision making. Until recently proxy support was unavailable, so formal guardianship arrangements were initiated. A conversation has now been facilitated with his immediate and extended family members to apprise them of his ongoing deterioration, hospice elegibility, and the clincial appropriateness of altering his plan of care to a non-aggressive status. The family verbalized agreement with this approach. Thank you for this consultation. Mani Castillo ThD
--- NOTE | 2021-03-07 12:07 | NUR ---
PT RESTING AND DOES NOT APPEAR IN ANY ACUTE DISTRESS. MEDICATED WITH IV MORPHINE X1 FOR MILD AIR HUNGER. PT'S BREATHING PATTERN CONSISTENT WITH SLEEP APNEA. SPO2 98-99% ON RA. HE DOES HAVE PERIODS WHEN DESATS INTO 50-60'S FOR MOMENTS, BUT DOES RECOVER WELL INTO 90'S.
--- NOTE | 2021-03-07 17:22 | NUR ---
GAVE REPORT TO TRELL MARSHALL, ON MEDICAL FLOOR AROUND 1630. PT TRANSFERRED TO ROOM 339 AROUND 1700. PT REMAINS ON COMFORT CARE, ON ROOM AIR, SPO2 95-98%.
--- NOTE | 2021-03-07 17:30 | NUR ---
SHIFT SUMMARY PT TRANSFERRED TO UNIT FROM ICU AT APPROXIMATELY 1700. PT IS NOT AO. PT MUMBLES TO SELF, BUT DOES NOT OPEN EYES TO VERBAL STIMULI. PT IS ON RA. BOYLE IS PATENT AND DRAINING YELLOW URINE. PT IS ON BEDREST AND NPO. PT IS IN ROOM, CALL LIGHT IN REACH, LOW POSITION.
--- NOTE | 2021-03-08 05:51 | NUR ---
SHIFT SUMMARY PT AWAKE AND ATTEMPTING TO GET OUT OF BED AT START OF SHIFT. MEDICATED BY DAY TOOL BUILDER AND PT SLEPT WELL FOR QUITE SOME TIME. PT WOKE THIS AM VERY ALERT AND CONFUSED. WAS ABLE TO SLIP HIS LEGS THROUGH THE RAILS ON ONE SIDE OF THE BED AND BEGAN CRAWLING ON THE FLOOR. IT TOOK FOUR STAFF MEMBERS TO GET HIM BACK TO BED. PT IS NOT REDIRECTABLE. RIPPING AND PULLING ON ANYTHING HE CAN GET HIS HANDS ON. PT TORE OFF CLOTH PANTS AND ATTENDS AND WAS ATTEMPTING TO PULL OUT HIS BOYLE CATHETER. PT PULLED OUT IV. CONTINUOUSLY ATTEMPTING TO GET OUT OF BED. MEDICATED W/ 2 MG PO ATIVAN AND 20 MG PO ROXANOL. PT SCAPPED TOES ON THE FLOOR AND REMOVED SOME SKIN WHILE CRAWLING ON THE FLOOR. HE ALSO BRUISED HIS R MARTÍNEZ. PT IS BEGINNING TO CALM BUT IS STILL PULLING ON RESTRAINTS. NEW ORDER FOR IM HALDOL. WILL ADMINISTER IF PT DOESN'T CONTINUE TO CALM. DR. ARORA NOTIFIED OF RESTRAINTS AND BEHAVIOURS. REQUESTS THAT WE ATTEMPT TO GET PT OUT OF RESTRAINTS SOON WE CAN AND WHEN HE CALMS. PT HAD NO VISITORS THIS EVENING. REQUESTED WATER SEVERAL TIMES. SWALLOWED WELL WHEN AWAKE. WILL CONTINUE TO MONITOR.
--- NOTE | 2021-03-08 09:30 | NUR ---
Comfort care visit. Pt is currently sleeping. Was medicated on applications chemist with haldol with good effect. Nursing reports pt has had a long hospitalization and has had difficulty managing his behaviors at times. Currently pt is asleep and did not disturb him. Nursing states she will speak with Dr. Farias re: the possibility of restarting zyprexa as he has had some success with taking that medication recently. PC to continue to follow for symptom management and therapeutic visits prn.
--- NOTE | 2021-03-08 14:59 | NUR ---
PT ROOM TRANSFER PT IS AO TO SELF. PT CURRENTLY IN POSY VEST AND RAIL RESTRAINTS. REPORT GIVEN TO TRELL PHAM. PT EYES OPEN TO VERBAL STIMULI AND SPEECH IS GARBLED. PT IS IN BED, CALL LIGHT IN REACH, LOW POSITION.
--- NOTE | 2021-03-08 15:04 | NUR ---
Assumed Care Patient transferred to [facility] 350. Slide transfer to bed. Personal belongings at bedside. Restraints in place. Patient mumbling incoherently with slurred speech and some confusion, able to make out some words. Settled to room. Call light near. Report received from Kati Villarreal
--- NOTE | 2021-03-08 17:22 | NUR ---
Shift Summary Multiple attempts to get out of bed, pulling off attends, and multiple calls received from remote monitors. Medicated per EMAR for pain and anxiety. Confusion and verbal responses remain the same. Difficutly following simple commands. Bed in lowest position. Call light near. WCTM.
--- NOTE | 2021-03-08 18:06 | NUR ---
BLADDER RETENTION Patient had not voided since assumption of care. Bladder scan showed 526 cc. L/M with Dr. Farias. Awaiting call back.
--- NOTE | 2021-03-09 04:52 | NUR ---
SHIFT SUMMARY: AOX1, COOPERATIVE AT TIMES. SLEPT FIRST HALF OF THE SHIFT, THEN WOKE UP FULL BLOWN TRYING TO GET OUT OF BED, TWISTING IN HIS POSI, WOULD NOT FOLLOW DIRECTIONS. CONFUSED AND NOT RE-ORIENTING. GAVE ROXINOL AND ATIVAN. POSI AND [address] BLADDER SCAN TWICE THIS SHIFT 300-400 EACH TIME. DUE TO AGGITATION DID PLACE A STRAIGHT CATH TO GRAVITY TILL BLADDER WAS EMPTIED THEN REMOVED CATH. NO ACUTE CHANGES TO NOTE. BED ALARM IS ON. WILL CONTINUE TO MONITOR AND PROVIDE COMFORT.
--- NOTE | 2021-03-09 10:00 | NUR ---
Patient has been asleep since assumed care this morning. Restraints removed. Camera verified on and patient visible.
--- NOTE | 2021-03-09 11:00 | NUR ---
Family at bedside, CMs notified. Both Estella and Marlys arrived and discussed d/c planning and addressed concerns with family.
--- NOTE | 2021-03-09 11:32 | NUR ---
STRAIGHT CATH V.O. FROM DR. SKELTON TO STRAIGHT CATH Q SHIFT. ORDER UPDATED.
--- NOTE | 2021-03-09 16:45 | NUR ---
Shift Summary Sleeping throughout today. Family from [place] was in to see patient. Sleep apnea noticable, HOB kept elevated. Medicated per EMAR. Bed alarm and camera on, 3x side rails up, call light in reach, and bed in lowest position. Bladder scan showed 559cc, straight cathed 500cc. Patient tolerated well.
--- NOTE | 2021-03-09 16:54 | NUR ---
Met with pt and family members today to discuss end of life care. They are here from out of town, and they verbalize feeling grateful for the care the pt is receiving. No changes to pt's care plan at this time. Pt appears comfortable, no s/s of distress.
--- NOTE | 2021-03-10 06:13 | NUR ---
SHIFT SUMMARY PATIENT ALERT AND ORIENTED TO SELF. WAS STRAIGHT CATHED TO RELIEVE URINARY RETENTION. NO ACUTE ISSUES NOTED OVERNIGHT. BED IN LOWEST POSITION WITH WHEELS LOCKED AND ALARM ON. CALL LIGHT WITHIN REACH. REPORT GIVEN TO ONCOMING RN.
--- NOTE | 2021-03-10 10:13 | NUR ---
Comfort Care Visit Pt resting in bed with his eyes closed. Pt appears comfortable with no S/S of distress at this time. Spoke with Primary RN Chyna and discussed case. Pt medicated with haldol with good effect. No concerns reported at this time. Palliative Care will remain available.
--- NOTE | 2021-03-10 17:33 | NUR ---
Shift Summary Somnolent for most of the shift. Patient did wake up a few times and had episodes of agitation and aggression. Patient attempted to climb out of bed. When assisted back to bed by this RN and other RN, patient grabbed other RN's wrist hard and wouldn't let go. Mumbling incoherently and unable to follow commands. Patient also pushing staff when assisting patient back to bed. Medicated per EMAR. Bladder scan revealed > 400. Straight cath done to relieve retention. Repositions self in bed and staff also assist to reposition.
--- NOTE | 2021-03-11 05:17 | NUR ---
SHIFT SUMMARY PATIENT ALERT AND ORIENTED TO SELF. SLEPT MOST OF SHIFT. SHOWED NO SIGNS OF BEING IN PAIN OR HAVING DIFFICULTY BREATHING. STRAIGHT CATHED PATIENT TO RELIEVE URINARY RETENTION. BED IN LOWEST POSITION WITH WHEELS LOCKED AND ALARM ON. CALL LIGHT WITHIN REACH. REPORT GIVEN TO ONCOMING RN.
--- NOTE | 2021-03-11 09:23 | NUR ---
Comfort Care Visit Pt resting in bed upon arrival. Pt is non verbal and is reaching and grasping. Pt leaning towards one side of bed and appears to be attempting to climb out of bed. Pt recently received haloperidol. Pt may benefit from Roxanol as well. Left message for Primary RN to consider Roxanol as well. Palliative Care will remain available.
--- NOTE | 2021-03-11 18:53 | NUR ---
PT IS VERY RESTLESS,SRTAIGHT CATH HIM REMOVED 500CC,PT IN BED,BED ALARM ON.PT HAS NO ACUTE EVENTS T/O SHIFT,PT REMAINS ON COMFORT CARE.PT CALL LIGHT.REPORT GIVEN TO OMMARYCARMEN RN.
--- NOTE | 2021-03-12 05:34 | NUR ---
SHIFT SUMMARY PATIENT ALERT AND ORIENTED TO SELF ONLY. MEDICATED PER EMAR FOR AGITATION. NO SIGNS OF PAIN OR SHORTNESS OF BREATH. BED IN LOWEST POSITION WITH WHEELS LOCKED AND ALARM ON. CALL LIGHT WITHIN REACH. REPORT GIVEN TO ONCOMING RN.
--- NOTE | 2021-03-12 14:01 | NUR ---
Met pt. lying in bed and can not do much for self, offeed prayers.
--- NOTE | 2021-03-12 15:38 | NUR ---
Pt visit made today; spoke to bedside RN Mignon. She reports pt has been sleeping most of the shift, remains agitated but not combative. She has been able to give pt liquid pain medication (roxanol) without any issues, but she hasn't tried giving any po lorazepam or IM haldol today for the agitation. She is agreeable to try giving the lorazepam crushed, as it can be mixed in either a minute amount of water in a syringe, or mixed with roxanol. The same can be done with crushed haldol tablets. Pt is moaning occasionally, and will open his eyes, but does not engage with staff. Respirations are even and unlabored. He has slept intermittently through this shift. Dr. Farias gives ok for d/c IM Haldol, add po haldol to be crushed and offered in either water or given with roxanol.
[2021-03-12 17:41] LABS: Source, Urine Catheter
[2021-03-12 17:46] LABS: Appearance, Urine Hazy (Clear); Bilirubin, Urine Neg (Neg); Blood, Urine 3+ (Neg); Color, Urine Amber (P-Yellow); Glucose Qualitative, Urine Neg (Neg); Ketones, Urine 2+ (Neg); Leukocyte Esterase, Urine 1+ (Neg); Nitrite, Urine Neg (Neg); Protein, Urine 2+ (Neg); Specific Gravity, Urine 1.025 (1.003-1.022); Urobilinogen, Urine 1+ (Normal)
[2021-03-12 18:03] LABS: Calcium Oxalate Crystals Rare /hpf; Renal Epithelial Few /hpf (0-Rare)
[2021-03-12 18:04] LABS: Bacteria Few /hpf; Squamous Epithelial Cells Few /hpf (Few); Uric Acid Crystals Rare /hpf
--- NOTE | 2021-03-12 19:10 | NUR ---
PT HAD BOYLE INSERTED THIS AFTERNOON,UA SENT TO LAB,PT HAS BEEN RESTLESS ALL DAY MEDICATED PER EMAR.PT IN BED,BED IN LOW POSITION,GIVEN REPORT TO ONCOMING RN.
--- NOTE | 2021-03-12 21:31 | NUR ---
RESTING QUIETLY. NO NOTED ACUTE DISTRESS. CALL LIGHT IN REACH
--- NOTE | 2021-03-12 21:32 | NUR ---
WARM BLANKETS APPLIED. PT QUIET WHEN SPOKEN TO. BOYLE DRAINING. ABLE TO REPOSITION SELF. CREAM APPLIED TO GROIN. WILL CONTINUE TO MONITOR
--- NOTE | 2021-03-12 23:09 | NUR ---
Resting quietly. Call light in reach
--- NOTE | 2021-03-13 00:28 | NUR ---
RESTING QUIETLY. CALL LIGHT IN REACH. NO NOTED S/S ACUTE DISTRESS
--- NOTE | 2021-03-13 04:22 | NUR ---
REPOSITOINED. REDIRECTED. ASSISTED INTO MORE COMFORTABLE POSITION. CALL LIGHT IN REACH
--- NOTE | 2021-03-13 04:23 | NUR ---
REPOSITOINED. CALL LIGHT IN REACH
--- NOTE | 2021-03-13 04:26 | NUR ---
SHIFT ASSESSMENT NO ACUTE CHANGES. PT RESTING IN BED QUIETLY THROUGHOUT THE SHIFT. PT DOES NOT APPEAR TO HAVE EATEN LUNCH OR DINNER THERE ARE TWO TRAYS LEFT. PT REPOSITIONED AND COVERED WITH BLANKETS. BOYLE IN PLACE. CALL LIGHT WITHIN REACH. WILL CONTINUE TO MONITOR.
--- NOTE | 2021-03-13 06:01 | NUR ---
RESTING QUIETLY. REPOSITIONS SELF. CALL LIGHT IN REACH
--- NOTE | 2021-03-13 12:50 | NUR ---
Pt. lying in bed helpless, offered prayers for him and blessed him.
--- NOTE | 2021-03-13 18:33 | NUR ---
Pt's pain and anxiety are much better controlled at this time. No furrowed brow, bedside RN reports pt's symptoms are controlled at this time.
--- NOTE | 2021-03-13 18:53 | NUR ---
PT WAS AGITATED THIS AM MEDICATED PER EMAR.BOYLE INTACT DRAINAGE TO GRAVITY. PT RESTLESS IN BED,BED LOCK,LOW POSITION,PT HAS NO ACUTE EVENTS T/O THIS SHIFT CALL LIGHT IN REACH WILL CONTINUE TO MONITOR.
--- NOTE | 2021-03-14 05:26 | NUR ---
SUMMARY: PT REMAINS ON COMFORT CARE AND IS A/O TO SELF ONLY. HE HAS SEVERE DEMENTIA W/DIFFICULTY VOCALIZING OR CONVEYING NEEDS. HE APPEARED VERY FIGITY, RESTLESS, ANXIOUS AND PAINFUL AT START OF SHIFT. 1MG PO ATIVAN CRUSHED IN APPLESAUCE W/2OMG ORAL ROXINOL RECIEVED FOR TOLERABLE RELIEF. HE CALMED QUICKLY, BECAME MUCH MORE COMFORTABLE AND SLEPT MAJORITY OF NOCTE. PT REPOSITIONED SELF IN BED BUT TURN SCHEDULE WAS MAINTANIED. FLUIDS AND SNACKS OFFERED W/FEEDER ASSIST [place] AND PT SEEMED TO ENJOY ENSURE AND JELLO. [place] IS PATENT DRAINING, NO BM OBSERVED THIS SHIFT. NO ACUTE CHANGES. PLACEMENT PENDING. WCTM AND REPORT TO DAY RN.
--- NOTE | 2021-03-14 11:30 | NUR ---
Received referral from program services planner (Elin Martinez) on 03/14/2021. Patient is to discharge today- or tomorrow- 03/15/2021 with orders for hospice and guardian elected [facility]. Gathered supporting documentation for referral (face sheet, labs, imaging, progress notes, palliative care note, and H&P) and sent to [facility] Hosp[facility] supervisor painting shipyard (Kelli Morris) for review of hospice appropriateness and ability to accept patient onto service post discharge. Will await further information from hospice supervisor painting shipyard regarding the above. [facility] Referral Liaison
[2021-03-14 13:49] LABS: Influenza A, PCR NEGATIVE (NEGATIVE); Influenza B, PCR NEGATIVE (NEGATIVE); Resp Syncytial Virus, PCR NEGATIVE (NEGATIVE); SARS-Cov-2 (COVID-19) PCR, MMC NEGATIVE (NEGATIVE)
--- NOTE | 2021-03-14 15:10 | NUR ---
Late Entry from 03/14/2021 at 1413: Received notification from [facility] Hospice biologist aide (Kelli Morris) that patient is hospice appropriate and able to be accepted onto service post discharge. Will coordinate discharge with facility ([facility]) today- 03/14/2021 and attempt to reach patient's guardian (Sandy UpOajimuaw-[phone]) tomorrow to further discuss the above. Will continue to monitor and follow for discharge. [facility] Referral Liaison
[2021-03-14] MEDS ORDERED: ATROPINE SULFATE2 M1 SL (17:23)
[2021-03-14] MEDS ORDERED: Haldol 5 mg Tab5 MG PO (17:24)
[2021-03-14] MEDS ORDERED: Ativan1 MG PO (17:25)
[2021-03-14] MEDS ORDERED: MORP20L SL (17:26)
[2021-03-14] MEDS ORDERED: NYSTATIN15 GM TOP (17:27)
[2021-03-14] MEDS ORDERED: TRANSDERM-SCOP1 EAC8 TD (17:28)
--- NOTE | 2021-03-14 18:15 | NUR ---
PT DISCHARGE TO [facility] WITH HOSPICE CARE.PT BOYLE INTACT,DRAINAGE TO GRAVITY,PT HAD NO ACUTE CHANGES T/O THIS SHIFT.CALLED AND GAVE REPORT TO THAI MCNEIL.PT TRANSPORT VIA GURNEY TO [facility].
--- NOTE | 2021-03-15 09:09 | NUR ---
Late Entry from 03/14/2021 at 1430: Patient is to discharge today as soon as possible to [facility] with orders for hospice. Contacted [facility]s Travel Service via fax to arrange gurney transport to facility listed above. Pick-up at 1600 will be provided by [facility]. Faxed copy of face sheet, PCS form, DNR status, and VTS form to VTS office per protocol. Placed copies of the above in nurse room service food server for bus van driver. Notified master planner, ACC (Beena Ace), Charge RNs (Alton Dodd and Marlys Sifuentes), and bedside RN (Mignon Watson) of the above. All are agreeable to the above. Requested discharge orders from hospitalist (Dr. Farias). Provided hard copy prescriptions for morphine and lorazepam to facility via facility discharge envelope. Copies of prescriptions for morphine 20mg/mL #30mL (0.25mL - 1mL PO/SL Q1H PRN SOB/pain), lorazepam 0.5mg #20 (1 - 2 PO Q4H PRN anxiety), and hyoscyamine 0.125mg SL tablets #30 (1 SL Q2H PRN secretions) faxed to [facility] (Roel Cole RN) and [facility] (preferred pharmacy). Faxed copies of discharge order and med list to [facility] artificial stone setter and [facility] (Roel 100 RN). Additionally discharge medication list was faxed to [facility] (preferred pharmacy). No further interventions required. [facility] Referral Liaison
== END 2021-03-14 16:07 | DRG 57 ==
LOC: ER 16:17 → MEDS 16:18 → ER 01-26 18:09 → MEDS 01-26 18:09 → ICUE 03-04 16:52 → MEDS 03-07 16:44
PROVIDERS: Emergency Medicine; Family Medicine; Internal Medicine; Student in an Organized Health Care Education/Training Program; ADMIT Family Medicine
DX: G30.9 Alzheimer's disease, unspecified (principal); F02.81 Dementia in other diseases classified elsewhere, unspecified severity, with behavioral disturbance; F05 Delirium due to known physiological condition; E87.1 Hypo-osmolality and hyponatremia; E72.20 Disorder of urea cycle metabolism, unspecified; G93.49 Other encephalopathy; E11.22 Type 2 diabetes mellitus with diabetic chronic kidney disease; N18.30 Chronic kidney disease, stage 3 unspecified; N40.0 Benign prostatic hyperplasia without lower urinary tract symptoms; F32.A Depression, unspecified; N40.1 Benign prostatic hyperplasia with lower urinary tract symptoms; R33.8 Other retention of urine; K59.00 Constipation, unspecified; I95.9 Hypotension, unspecified; K52.9 Noninfective gastroenteritis and colitis, unspecified; Z20.822 Contact with and (suspected) exposure to COVID-19; Z51.5 Encounter for palliative care; Z98.890 Other specified postprocedural states; Z79.84 Long term (current) use of oral hypoglycemic drugs; Z79.899 Other long term (current) drug therapy; Z87.891 Personal history of nicotine dependence; Z88.8 Allergy status to other drugs, medicaments and biological substances; E11.65 Type 2 diabetes mellitus with hyperglycemia; E78.5 Hyperlipidemia, unspecified; E11.40 Type 2 diabetes mellitus with diabetic neuropathy, unspecified; M10.9 Gout, unspecified; Z78.1 Physical restraint status
CPT/HCPCS: 0241U; 36415; 36600; 51701; 51702; 70450; 71045; 74176; 76705; 80048; 80053; 80069; 81001; 81003; 82140; 82550; 82553; 82607; 82746; 82803; 82947; 83036; 83605; 83690; 83735; 83880; 84100; 84145; 84443; 84484; 85014; 85018; 85025; 85027; 85651; 86592; 87086; 92526; 92610; 93005; 93010; 94760; 94762; 96360; 96361; 96365; 96366; 96372; 96375; 96376; 97110; 97116; 97129; 97130; 97161; 97165; 99285-25; A9270; G0378; G0480; J0360; J0696; J1200; J1630; J1650; J1815; J2060; J2270; J7030; J7050; J7120; U0004